=== PATIENT | female | born 2000 | race Caucasian/White ===

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

== ENCOUNTER 2019-12-19 23:11 | Emergency (ER) | payer BC ==
[2019-12-20] MEDS ORDERED: DUONEB 0.5-3 MG/3 ml Neb IH ONE ×2 (00:03→00:14)
--- NOTE | 2019-12-20 00:03 | ERPHSYRPT ---
- History of Present Illness Time Seen by Provider: 12/20/19 00:01 Source: patient, family Exam Limitations: no limitations Patient Subjective Stated Complaint: pt states she has been having a cough all day and has some exertional shortness of breath. Triage Nursing Assessment: pt alert and oriented, asnwers questions approp. pt ambulatoryw iht steady gait noted, respirations nonlabored with lungs cta. skin pink warm and dry. occasioanl dry cough noted. no resp distress noted. Physician History: pt reports onset of cough and short of breath just today and feeling like the flu/weak, no vomiting , but has had UTI being treated; Timing/Duration: today Cough Quality/Degree: productive cough Possible Cause: no prior episodes Modifying Factors: Improves With: exertion Associated Symptoms: chest pain/soreness, cough, shortness of breath, sore throat, wheezing Allergies/Adverse Reactions: No Known Drug Allergies Allergy (Verified 12/19/19 23:50) Home Medications: Armodafinil [Nuvigil] 150 mg PO DAILY 12/19/19 [History] Ciprofloxacin [Cipro 500 MG] 500 mg PO BID 12/19/19 [History] Hx Tetanus, Diphtheria Vaccination/Date Given: Yes Hx Influenza Vaccination/Date Given: Yes Hx Pneumococcal Vaccination/Date Given: No Immunizations Up to Date: Yes - Review of Systems Constitutional: Fever, No Chills Eyes: No Symptoms Ears, Nose, & Throat: No Symptoms Respiratory: Cough, Dyspnea, Dyspnea on Exertion (CHA) Cardiac: No Chest Pain, No Edema, No Syncope Abdominal/Gastrointestinal: No Abdominal Pain, No Nausea, No Vomiting, No Diarrhea Genitourinary Symptoms: No Dysuria Musculoskeletal: No Back Pain, No Neck Pain Skin: No Rash Neurological: No Dizziness, No Focal Weakness, No Sensory Changes Psychological: No Symptoms Endocrine: No Symptoms Hematologic/Lymphatic: No Symptoms Immunological/Allergic: No Symptoms All Other Systems: Reviewed and Negative - Past Medical History Pertinent Past Medical History: No Neurological History: No Pertinent History ENT History: No Pertinent History Cardiac History: No Pertinent History Respiratory History: No Pertinent History Endocrine Medical History: No Pertinent History Musculoskeletal History: No Pertinent History GI Medical History: Gallbladder Disease, Hemorrhoids History: No Pertinent History Psycho-Social History: Depression Female Reproductive Disorders: Menstrual Problems Other Medical History: has a little depression but meds help. gerd and hiatal hernia and barretts esophagus. possible narcolepsy - Past Surgical History Past Surgical History: Yes Neuro Surgical History: No Pertinent History Cardiac: No Pertinent History Respiratory: No Pertinent History Gastrointestinal: No Pertinent History Genitourinary: No Pertinent History Musculoskeletal: Orthopedic Surgery Female Surgical History: No Pertinent History Other Surgical History: carpal and cubital tunnel bilat - Social History Smoking Status: Never smoker Exposure to second hand smoke: No Drug Use: none Patient Lives Alone: No - Female History Hx Last Menstrual Period: 2 weeks Hx Now: No - Nursing Vital Signs Nursing Vital Signs: Initial Vital Signs Temperature 97.9 F 12/19/19 23:41 Pulse Rate 95 H 12/19/19 23:41 Respiratory Rate 18 12/19/19 23:41 Blood Pressure 122/76 12/19/19 23:41 O2 Sat by Pulse Oximetry 97 12/19/19 23:41 Pain Scale Pain Intensity 0 - Physical Exam General Appearance: no apparent distress, alert Eye Exam: PERRL/EOMI, eyes nml inspection Ears, Nose, Throat Exam: normal ENT inspection, TMs normal, pharynx normal, moist mucous membranes Neck Exam: normal inspection, non-tender, supple, full range of motion Respiratory Exam: normal breath sounds, lungs clear, No respiratory distress Cardiovascular Exam: regular rate/rhythm, normal heart sounds Gastrointestinal/Abdomen Exam: soft, No tenderness Back Exam: normal inspection, No CVA tenderness, No vertebral tenderness Extremity Exam: normal inspection, normal range of motion Neurologic Exam: alert, oriented x 3, cooperative, normal mood/affect, sensation nml, No motor deficits Skin Exam: normal color, warm, dry, No rash Lymphatic Exam: No adenopathy SpO2: 98 - Course Nursing assessment & vital signs reviewed: Yes EKG Interpreted by Me: Sinus Tach, NORMAL AXIS, NORMAL INTERVALS, NORMAL QRS, Non-specific ST Changes - Radiology Exams Chest X-ray Interpretation: Reviewed by me, Other (minor /minimal infiltrates) Ordered Tests: Active Orders 24 hr Category Date Time Status EKG-ER Only STAT Care 12/20/19 00:03 Active Pulse Oximetry (ED) STAT Care 12/20/19 00:03 Active CHEST 2 VIEWS (PA AND LAT) Stat Exams 12/20/19 00:05 Taken CBC W DIFF Stat Lab 12/20/19 00:33 Completed CMP Stat Lab 12/20/19 00:33 Completed D-DIMER QUANTITATIVE Stat Lab 12/20/19 00:33 Completed HCG QUALITATIVE,SERUM Stat Lab 12/20/19 00:33 Completed Lactic Acid Stat Lab 12/20/19 00:26 Completed TROPONIN Q3H Lab 12/20/19 00:33 Completed TROPONIN Q3H Lab 12/20/19 03:15 Ordered TROPONIN Q3H Lab 12/20/19 06:15 Ordered TROPONIN Q3H Lab 12/20/19 09:15 Ordered TROPONIN Q3H Lab 12/20/19 12:15 Ordered Respiratory Therapy Assessment DAILY RT 12/20/19 00:15 Completed Medication Summary Discontinued Medications Generic Name Dose Route Start Last Admin Trade Name Freq PRN Reason Stop Dose Admin Albuterol/Ipratropium 3 ml 12/20/19 00:03 12/20/19 00:16 Duoneb 0.5-3 Mg/3 Ml Neb IH 12/20/19 00:04 3 ml STAT ONE Administration Albuterol/Ipratropium Confirm 12/20/19 00:14 Duoneb 0.5-3 Mg/3 Ml Neb Administered 12/20/19 00:15 Dose 3 ml IH .STK-MED ONE Ceftriaxone Sodium 1,000 mg 12/20/19 01:09 12/20/19 01:17 Rocephin 1000 Mg Inj IM 12/20/19 01:10 1,000 mg STAT ONE Administration Ceftriaxone Sodium Confirm 12/20/19 01:10 Rocephin 1000 Mg Inj Administered 12/20/19 01:11 Dose 1,000 mg .ROUTE .STK-MED ONE Ceftriaxone Sodium/Dextrose 1 g in 50 mls @ 100 mls/hr 12/20/19 00:59 02:05 Rocephin 1 Gm-D5w 50 Ml Bag IV 12/20/19 01:28 Not Given STAT STA Lidocaine HCl Confirm 12/20/19 01:11 Xylocaine 1% Hcl 20 Ml Mdv Administered 12/20/19 01:12 Dose 1 ml .ROUTE .STK-MED ONE Lab/Rad Data: Laboratory Result Diagrams 12/20/19 00:33 12/20/19 00:33 Laboratory Results 12/20/19 12/20/19 12/20/19 Range/Units 00:33 00:33 00:33 WBC (4.0-10.5) K/mm3 RBC (4.1-5.4) M/mm3 Hgb (12.0-16.0) gm/dl Hct (35-47) % MCV (78-100) fl MCH (26-32) pg MCHC (32-36) g/dl RDW (11.5-14.0) % Plt Count (150-450) K/mm3 MPV (7.5-11.0) fl Gran % (36.0-66.0) % Eos # (Auto) (0-0.5) Absolute Lymphs (auto) (1.0-4.6) Absolute Monos (auto) (0.0-1.3) Lymphocytes % (24.0-44.0) % Monocytes % (0.0-12.0) % Eosinophils % (0.00-5.0) % Basophils % (0.0-0.4) % Absolute Granulocytes (1.4-6.9) Basophils # (0-0.4) D-Dimer 480 (215-500) ng/mL Sodium (137-145) mmol/L Potassium (3.5-5.1) mmol/L Chloride (98-107) mmol/L Carbon Dioxide (22-30) mmol/L Anion Gap (5-15) MEQ/L BUN (7-17) mg/dL Creatinine (0.52-1.04) mg/dL Estimated GFR ML/MIN Glucose (74-106) mg/dL Lactic Acid (0.4-2.0) Calcium (8.4-10.2) mg/dL Total Bilirubin (0.2-1.3) mg/dL AST (14-36) U/L ALT (0-35) U/L Alkaline Phosphatase (38-126) U/L Troponin I < 0.012 (0.000-0.034) ng/mL Serum Total Protein (6.3-8.2) g/dL Albumin (3.5-5.0) g/dL Serum , Qual (Negative) Influenza Type A Ag NEGATIVE (NEGATIVE) Influenza Type B Ag NEGATIVE (NEGATIVE) RSV (PCR) NEGATIVE (Negative) Group A Strep Antibody NOT DETECTED (NEGATIVE) 12/20/19 12/20/19 12/20/19 Range/Units 00:33 00:33 00:33 WBC 13.9 H (4.0-10.5) K/mm3 RBC 4.33 (4.1-5.4) M/mm3 Hgb 12.8 (12.0-16.0) gm/dl Hct 39.1 (35-47) % MCV 90.3 (78-100) fl MCH 29.6 (26-32) pg MCHC 32.7 (32-36) g/dl RDW 11.9 (11.5-14.0) % Plt Count 245 (150-450) K/mm3 MPV 9.9 (7.5-11.0) fl Gran % 66.9 H (36.0-66.0) % Eos # (Auto) 0.51 H (0-0.5) Absolute Lymphs (auto) 2.99 (1.0-4.6) Absolute Monos (auto) 1.05 (0.0-1.3) Lymphocytes % 21.5 L (24.0-44.0) % Monocytes % 7.5 (0.0-12.0) % Eosinophils % 3.7 (0.00-5.0) % Basophils % 0.4 (0.0-0.4) % Absolute Granulocytes 9.32 H (1.4-6.9) Basophils # 0.05 (0-0.4) D-Dimer (215-500) ng/mL Sodium 140 (137-145) mmol/L Potassium 3.6 (3.5-5.1) mmol/L Chloride 106 (98-107) mmol/L Carbon Dioxide 26 (22-30) mmol/L Anion Gap 12.0 (5-15) MEQ/L BUN 22 H (7-17) mg/dL Creatinine 0.70 (0.52-1.04) mg/dL Estimated GFR > 60.0 ML/MIN Glucose 97 (74-106) mg/dL Lactic Acid (0.4-2.0) Calcium 9.4 (8.4-10.2) mg/dL Total Bilirubin 0.70 (0.2-1.3) mg/dL AST 24 (14-36) U/L ALT 18 (0-35) U/L Alkaline Phosphatase 84 (38-126) U/L Troponin I (0.000-0.034) ng/mL Serum Total Protein 7.6 (6.3-8.2) g/dL Albumin 4.4 (3.5-5.0) g/dL Serum , Qual NEGATIVE (Negative) Influenza Type A Ag (NEGATIVE) Influenza Type B Ag (NEGATIVE) RSV (PCR) (Negative) Group A Strep Antibody (NEGATIVE) 12/20/19 Range/Units 00:26 WBC (4.0-10.5) K/mm3 RBC (4.1-5.4) M/mm3 Hgb (12.0-16.0) gm/dl Hct (35-47) % MCV (78-100) fl MCH (26-32) pg MCHC (32-36) g/dl RDW (11.5-14.0) % Plt Count (150-450) K/mm3 MPV (7.5-11.0) fl Gran % (36.0-66.0) % Eos # (Auto) (0-0.5) Absolute Lymphs (auto) (1.0-4.6) Absolute Monos (auto) (0.0-1.3) Lymphocytes % (24.0-44.0) % Monocytes % (0.0-12.0) % Eosinophils % (0.00-5.0) % Basophils % (0.0-0.4) % Absolute Granulocytes (1.4-6.9) Basophils # (0-0.4) D-Dimer (215-500) ng/mL Sodium (137-145) mmol/L Potassium (3.5-5.1) mmol/L Chloride (98-107) mmol/L Carbon Dioxide (22-30) mmol/L Anion Gap (5-15) MEQ/L BUN (7-17) mg/dL Creatinine (0.52-1.04) mg/dL Estimated GFR ML/MIN Glucose (74-106) mg/dL Lactic Acid 1.4 (0.4-2.0) Calcium (8.4-10.2) mg/dL Total Bilirubin (0.2-1.3) mg/dL AST (14-36) U/L ALT (0-35) U/L Alkaline Phosphatase (38-126) U/L Troponin I (0.000-0.034) ng/mL Serum Total Protein (6.3-8.2) g/dL Albumin (3.5-5.0) g/dL Serum , Qual (Negative) Influenza Type A Ag (NEGATIVE) Influenza Type B Ag (NEGATIVE) RSV (PCR) (Negative) Group A Strep Antibody (NEGATIVE) - Progress Progress: improved, re-examined Air Movement: good Progress Note: 12/20/19 01:14 cardiac score is 3 for EKG, CP, and risk factors and is low risk with neg trop ; Blood Culture(s) Obtained: No Antibiotics given: Yes Counseled pt/family regarding: lab results, diagnosis, need for follow-up, rad results - Departure Departure Disposition: Home Clinical Impression: Walking pneumonia Condition: Good Critical Care Time: No Referrals: BOB BONILLA [Primary Care Provider] - Instructions: Pneumonia, Adult (DC), Community-Acquired Pneumonia in Adults Additional Instructions: we are treating you for early /walking pneumonia. followup with your as a recheck adn return meantime if not improving, vomiting, short of breath or other concerns. Prescriptions: Azithromycin [Zithromax] 250 mg PO DAILY #5 tablet
[2019-12-20 00:35] LABS: Absolute Neutrophil Ct (ANC) 9.32 (1.4-6.9); BASOPHIL % 0.4 % (0.0-0.4); Basophil (Absolute #) 0.05 (0-0.4); Eosinophil % 3.7 % (0.00-5.0); Eosinophil (Absolute #) 0.51 (0-0.5); Hematocrit 39.1 % (35-47); Hemoglobin 12.8 gm/dl (12.0-16.0); Lymphocyte (Absolute #) 2.99 (1.0-4.6); Lymphocytes % 21.5 % (24.0-44.0); Mean Cell Volume 90.3 fl (78-100); Mean Corpuscular Hemoglobin 29.6 pg (26-32); Mean Corpuscular Hgb Concent. 32.7 g/dl (32-36); Mean Platelet Volume 9.9 fl (7.5-11.0); Monocyte (Absolute #) 1.05 (0.0-1.3); Monocytes % 7.5 % (0.0-12.0); Neutrophil % 66.9 % (36.0-66.0); Platelet Count 245 K/mm3 (150-450); Red Blood Count 4.33 M/mm3 (4.1-5.4); Red Cell Distribution Width 11.9 % (11.5-14.0); White Blood Count 13.9 K/mm3 (4.0-10.5)
[2019-12-20 00:54] LABS: ALBUMIN 4.4 g/dL (3.5-5.0); ALKALINE PHOSPHATASE 84 U/L (38-126); BLOOD UREA NITROGEN 22 mg/dL (7-17); CHLORIDE 106 mmol/L (98-107); Calcium 9.4 mg/dL (8.4-10.2); Carbon Dioxide 26 mmol/L (22-30); Glucose 97 mg/dL (74-106); Potassium 3.6 mmol/L (3.5-5.1); SGOT/AST 24 U/L (14-36); SGPT/ALT 18 U/L (0-35); SODIUM 140 mmol/L (137-145); Total Protein 7.6 g/dL (6.3-8.2)
[2019-12-20] MEDS ORDERED: ROCEPHIN 1 Gm-D5w 50 ml Bag** 1 G/50 ML IVPB IV STA (00:59)
[2019-12-20] MEDS ORDERED: Rocephin 1000 MG INJ IM ONE (01:09)
[2019-12-20] MEDS ORDERED: Rocephin 1000 MG INJ ONE (01:10)
[2019-12-20 01:11] LABS: INFLUENZA A NEGATIVE (NEGATIVE); INFLUENZA B NEGATIVE (NEGATIVE); RESPIRATORY SYNCTIAL VIRUS NEGATIVE (Negative)
[2019-12-20] MEDS ORDERED: XYLOCAINE 1% HCL 20 ML MDV ONE (01:11)
[2019-12-20 01:54] VITALS: O2SAT 98
[2019-12-20 01:55] LABS: Group A Strep NOT DETECTED (NEGATIVE)
[2019-12-20 02:39] VITALS: BP 118/73; PULSE 72
--- NOTE | 2019-12-20 08:27 | XRAY ---
Indication: Cough and short of breath. Comparison: May 29, 2017. PA/lateral chest again demonstrates normal heart, lungs, and bony thorax.
== END 2019-12-20 02:43 | disposition home or self-care (01) ==
LOC: ED 23:11
DX: J18.8 Other pneumonia, unspecified organism (principal); R07.89 Other chest pain; R05 Cough; J02.9 Acute pharyngitis, unspecified; Z79.899 Other long term (current) drug therapy
CPT/HCPCS: 36415; 71046; 80053; 81025; 83605; 84484; 85025; 85379; 87631; 87651; 93005; 94640; 94760; 96372; 99284; J0696; A9270-GY

== ENCOUNTER 2020-05-24 09:58 | Emergency (ER) | payer BC, OTHER ==
[2020-05-24] MEDS ORDERED: SILVADENE 50 GM TP ONE ×2 (10:16→10:26)
[2020-05-24] MEDS ORDERED: TYLENOL EXTRA STRENGTH 500 MG PO STA (10:19)
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
[2020-05-24] MEDS ORDERED: TYLENOL EXTRA STRENGTH 500 MG ONE (10:26)
[2020-05-24 10:37] VITALS: BP 109/64; PULSE 88; O2SAT 98
== END 2020-05-24 10:36 | disposition home or self-care (01) ==
LOC: ED 09:58
DX: T24.011A Burn of unspecified degree of right thigh, initial encounter (principal); X19.XXXA Contact with other heat and hot substances, initial encounter; Y93.9 Activity, unspecified; Y92.9 Unspecified place or not applicable
CPT/HCPCS: 99283; A9270-GY

== ENCOUNTER 2020-05-26 05:20 | Emergency (ER) | payer BC, OTHER ==
[2020-05-26] MEDS ORDERED: BABY ASPIRIN 81 MG CHEW PO ONE (05:38)
--- NOTE | 2020-05-26 05:38 | ERPHSYRPT ---
- History of Present Illness Time Seen by Provider: 05/26/20 05:37 Historian: patient Exam Limitations: no limitations Patient Subjective Stated Complaint: pt c/o chest pain Triage Nursing Assessment: pt c/o chest pain, radiates to low mid back. This began around 1600 yesterday and thought she was just having period cramps but the pain got worse. Physician History: Is a 19-year-old white female who has significant anxiety issues and presents with chest pain that radiates into her back. She was not doing any exertion. Patient states that she tried to slowly deep breathe and her substernal central sharp chest pain persisted. Patient has chronic anginal symptoms. Patient does not take any medications for her anxiety per her report. Patient has not had a cough, patient denies fever. Patient does not have any abdominal pain. He said no nausea vomiting or diarrhea. Timing/Duration: yesterday Activities at Onset: none Quality: sharpness, stabbing Location: substernal, central Chest Pain Radiation: back (Lower) Severity of Pain-Max: mild Severity of Pain-Current: mild Associated Symptoms: denies symptoms Nitro Today/Relief: no nitro taken today Aspirin Treatment Today: no aspirin today Allergies/Adverse Reactions: No Known Drug Allergies Allergy (Verified 05/26/20 05:28) Home Medications: Albuterol Sulfate [Proair Respiclick] 2 puffs IH Q4H PRN PRN 05/26/20 [History] Budesonide/Formoterol Fumarate [Budesonide-Formoterol 160-4.5] 2 puffs IH BID 05/26/20 [History] Famotidine 20 mg [Pepcid 20 MG] 20 mg PO BID 05/26/20 [History] Valacyclovir HCl [Valacyclovir] 500 mg PO DAILY 05/26/20 [History] Hx Tetanus, Diphtheria Vaccination/Date Given: Yes Hx Influenza Vaccination/Date Given: Yes Hx Pneumococcal Vaccination/Date Given: No Immunizations Up to Date: Yes Travel Risk - International Travel Have you traveled outside of the country in past 3 weeks: No - Coronavirus Screening Are you exhibiting any of the following symptoms?: No Symptoms: Shortness of Breath, Vomiting/Diarrhea, Headaches/Body Aches/Fatigue Close contact with a COVID-19 positive Pt in past 14-21 Days: No - Review of Systems Constitutional: No Symptoms Eyes: No Symptoms Ears, Nose, & Throat: No Symptoms Respiratory: No Symptoms Cardiac: Chest Pain Abdominal/Gastrointestinal: No Symptoms Genitourinary Symptoms: No Symptoms Musculoskeletal: No Symptoms Skin: No Symptoms Neurological: No Symptoms Psychological: No Symptoms Endocrine: No Symptoms Hematologic/Lymphatic: No Symptoms Immunological/Allergic: No Symptoms All Other Systems: Reviewed and Negative - Past Medical History Pertinent Past Medical History: Yes Neurological History: No Pertinent History ENT History: No Pertinent History Cardiac History: Angina Respiratory History: No Pertinent History Endocrine Medical History: No Pertinent History Musculoskeletal History: No Pertinent History GI Medical History: Gallbladder Disease, Hemorrhoids History: No Pertinent History Psycho-Social History: Depression Female Reproductive Disorders: Menstrual Problems Other Medical History: has a little depression but meds help. gerd and hiatal hernia and barretts esophagus. possible narcolepsy - Past Surgical History Past Surgical History: Yes Neuro Surgical History: No Pertinent History Cardiac: No Pertinent History Respiratory: No Pertinent History Gastrointestinal: No Pertinent History Genitourinary: No Pertinent History Musculoskeletal: Orthopedic Surgery Female Surgical History: No Pertinent History Other Surgical History: carpal and cubital tunnel bilat, wisdom teeth - Social History Smoking Status: Current every day smoker How long have you smoked: 1 Exposure to second hand smoke: No Drug Use: marijuana Patient Lives Alone: No - Female History Hx Last Menstrual Period: 1 month ago Hx Now: No - Nursing Vital Signs Nursing Vital Signs: Initial Vital Signs Temperature 98.3 F 05/26/20 05:20 Pulse Rate 81 05/26/20 05:20 Respiratory Rate 18 05/26/20 05:20 Blood Pressure 123/84 05/26/20 05:20 O2 Sat by Pulse Oximetry 98 05/26/20 05:20 Pain Scale Pain Intensity 7 - Physical Exam General Appearance: no apparent distress, alert, anxiety Eye Exam: PERRL/EOMI, eyes nml inspection Ears, Nose, Throat Exam: normal ENT inspection, moist mucous membranes Neck Exam: normal inspection, non-tender, supple, full range of motion Respiratory Exam: normal breath sounds, chest tenderness, lungs clear, respiratory distress, airway intact Cardiovascular Exam: regular rate/rhythm, normal heart sounds, normal peripheral pulses Gastrointestinal/Abdomen Exam: soft, normal bowel sounds, No tenderness Pelvic Exam: not done Rectal Exam: not done Back Exam: normal inspection, normal range of motion, No CVA tenderness, No vertebral tenderness Extremity Exam: normal inspection, normal range of motion, pelvis stable Neurologic Exam: alert, oriented x 3, cooperative, certified hand therapist II-XII nml as tested, normal mood/affect, nml cerebellar function, nml station & gait, sensation nml Skin Exam: normal color, warm, dry Lymphatic Exam: No adenopathy SpO2 Interpretation: normal SpO2: 98 O2 Delivery: Room Air - Course Nursing assessment & vital signs reviewed: Yes EKG Interpreted by Me: RATE (80), Sinus Rhythm, NORMAL AXIS, NORMAL INTERVALS, NORMAL QRS, Other (Comparison EKG performed on 12/29/2019 shows sinus tachycardia. Today's EKG shows resolution of this tachycardia.) Ordered Tests: Active Orders 24 hr Category Date Time Status Assembler Wet Wash STAT Care 05/26/20 05:39 Active EKG-ER Only STAT Care 05/26/20 05:38 Active IV Insertion STAT Care 05/26/20 05:38 Active Pulse Oximetry (ED) STAT Care 05/26/20 05:39 Active CBC W DIFF Stat Lab 05/26/20 05:35 Completed CMP Stat Lab 05/26/20 05:38 Ordered D-DIMER QUANTITATIVE Stat Lab 05/26/20 05:35 Completed PROTIME WITH INR Stat Lab 05/26/20 05:35 Completed TROPONIN Q3H Lab 05/26/20 08:45 Ordered TROPONIN Q3H Lab 05/26/20 11:45 Ordered TROPONIN Q3H Lab 05/26/20 14:45 Ordered TROPONIN Q3H Lab 05/26/20 17:45 Ordered Medication Summary Discontinued Medications Generic Name Dose Route Start Last Admin Trade Name Freq PRN Reason Stop Dose Admin Aspirin 324 mg 05/26/20 05:38 05/26/20 05:41 Baby Aspirin 81 Mg Chew PO 05/26/20 05:39 324 mg STAT ONE Administration Potassium Chloride 10 meq 05/26/20 06:50 05/26/20 06:56 Klor Con 10 Meq PO 05/26/20 06:51 10 meq STAT ONE Administration Lab/Rad Data: Laboratory Result Diagrams 05/26/20 05:35 05/26/20 05:35 Laboratory Results 05/26/20 05/26/20 05/26/20 Range/Units 05:35 05:35 05:35 WBC 11.4 H (4.0-10.5) K/mm3 RBC 4.46 (4.1-5.4) M/mm3 Hgb 13.4 (12.0-16.0) gm/dl Hct 40.6 (35-47) % MCV 91.0 (78-100) fl MCH 30.0 (26-32) pg MCHC 33.0 (32-36) g/dl RDW 12.1 (11.5-14.0) % Plt Count 261 (150-450) K/mm3 MPV 10.1 (7.5-11.0) fl Gran % 65.1 (36.0-66.0) % Eos # (Auto) 0.23 (0-0.5) Absolute Lymphs (auto) 2.54 (1.0-4.6) Absolute Monos (auto) 1.16 (0.0-1.3) Lymphocytes % 22.3 L (24.0-44.0) % Monocytes % 10.2 (0.0-12.0) % Eosinophils % 2.0 (0.00-5.0) % Basophils % 0.4 (0.0-0.4) % Absolute Granulocytes 7.41 H (1.4-6.9) Basophils # 0.04 (0-0.4) PT 14.0 H (9.95-12.35) SECONDS INR 1.24 (0.8-3.0) D-Dimer 249 (215-500) ng/mL Sodium Direct 142 (138-146) mmol/L Potassium 3.2 L (3.5-4.9) mmol/L Chloride 108 (98-109) mmol/L Carbon Dioxide 21 L (24-29) mmol/L Venous BUN 10 (8-26) mg/dL Creatinine 0.7 (0.6-1.3) mg/dL Glucose 79 (70-105) mg/dL Ionized Calcium 1.25 (1.12-1.32) mmol/L - Progress Progress: improved, re-examined Air Movement: good Blood Culture(s) Obtained: No Antibiotics given: No Counseled pt/family regarding: lab results, diagnosis, need for follow-up - Departure Departure Disposition: Home Clinical Impression: Recurrent chest pain, Hypokalemia, Anxiety Condition: Stable Critical Care Time: No Referrals: BOB BONILLA [Primary Care Provider] - Additional Instructions: Drink plenty of fluids. Eat bananas, green leafy vegetables and variety of nuts to help increase potassium in your diet. Follow-up with your primary care physician for further management
[2020-05-26 06:06] LABS: Absolute Neutrophil Ct (ANC) 7.41 (1.4-6.9); BASOPHIL % 0.4 % (0.0-0.4); Basophil (Absolute #) 0.04 (0-0.4); Eosinophil (Absolute #) 0.23 (0-0.5); Hematocrit 40.6 % (35-47); Hemoglobin 13.4 gm/dl (12.0-16.0); Lymphocyte (Absolute #) 2.54 (1.0-4.6); Lymphocytes % 22.3 % (24.0-44.0); Mean Platelet Volume 10.1 fl (7.5-11.0); Monocyte (Absolute #) 1.16 (0.0-1.3); Monocytes % 10.2 % (0.0-12.0); Neutrophil % 65.1 % (36.0-66.0); Platelet Count 261 K/mm3 (150-450); Red Blood Count 4.46 M/mm3 (4.1-5.4); Red Cell Distribution Width 12.1 % (11.5-14.0); White Blood Count 11.4 K/mm3 (4.0-10.5)
[2020-05-26 06:16] LABS: INR 1.24 (0.8-3.0)
[2020-05-26 06:36] LABS: ISTAT CREA 0.7 mg/dL (0.6-1.3)
[2020-05-26] MEDS ORDERED: Klor Con 10 MEQ PO ONE ×2 (06:50→06:55)
[2020-05-26 07:17] VITALS: BP 134/85; PULSE 94; O2SAT 97
[2020-05-26 07:52] LABS: ALBUMIN 4.2 g/dL (3.5-5.0); ALKALINE PHOSPHATASE 65 U/L (38-126); ANION GAP 13.9 MEQ/L (5-15); SGOT/AST 19 U/L (14-36); SGPT/ALT 11 U/L (0-35); Total Protein 6.8 g/dL (6.3-8.2)
[2020-05-26 08:30] LABS: Calcium 9.7 mg/dL (8.4-10.2)
== END 2020-05-26 07:18 | disposition home or self-care (01) ==
LOC: ED 05:20
DX: R07.9 Chest pain, unspecified (principal); E87.6 Hypokalemia; F41.9 Anxiety disorder, unspecified
CPT/HCPCS: 36000; 36415; 80047; 80053; 84484; 85025; 85379; 85610; 93005; 93041; 94760; 99284; A9270-GY

== ENCOUNTER 2021-02-23 09:23 | Emergency (ER) | payer BC, OTHER ==
--- NOTE | 2021-02-23 09:35 | ERPHSYRPT ---
- History of Present Illness Time Seen by Provider: 02/23/21 09:35 Source: patient Exam Limitations: no limitations Physician History: This is a 20-year-old white female has a history of asthma. She does not smoke cigarettes but occasionally does smoke marijuana. Patient was well until Saturday when she noticed a cough which is associated with some shortness of breath. The cough and shortness of breath worsened over a couple days. She had a fever of 100 F. She was seen at the respiratory clinic yesterday and had a COVID-19 test obtained. The results are unknown at this point in time. Patient has had some wheezing and chest pain with coughing. She also states that she had diarrhea yesterday. She has no known exposures to any individual who tested positive for COVID-19 virus. Timing/Duration: day(s) (2) Activities at Onset: none Severity of Dyspnea-Max: mild Severity of Dyspnea-Current: mild Possible Cause: no prior episodes Modifying Factors: Improves With: activity, coughing, exertion Associated Symptoms: intermittent, cough, wheezing, painful breathing, No calf pain Allergies/Adverse Reactions: No Known Drug Allergies Allergy (Verified 02/23/21 09:37) Home Medications: Albuterol Sulfate [Proair Respiclick] 2 puffs IH Q4H PRN PRN 05/26/20 [History] Budesonide/Formoterol Fumarate [Budesonide-Formoterol 160-4.5] 2 puffs IH BID 05/26/20 [History] Hx Tetanus, Diphtheria Vaccination/Date Given: Yes Hx Influenza Vaccination/Date Given: Yes Hx Pneumococcal Vaccination/Date Given: No Travel Risk - International Travel Have you traveled outside of the country in past 3 weeks: No - Coronavirus Screening Are you exhibiting any of the following symptoms?: Yes Symptoms: Cough: New Onset, Shortness of Breath, Vomiting/Diarrhea Close contact with a COVID-19 positive Pt in past 14-21 Days: No - Vaccine Status Have you recieved a Covid-19 vaccination: No - Review of Systems Constitutional: Fever Eyes: No Symptoms Ears, Nose, & Throat: No Symptoms Respiratory: Cough, Wheezing Cardiac: No Symptoms Abdominal/Gastrointestinal: No Symptoms Genitourinary Symptoms: No Symptoms Musculoskeletal: No Symptoms Skin: No Symptoms Neurological: No Symptoms Psychological: No Symptoms Endocrine: No Symptoms Hematologic/Lymphatic: No Symptoms Immunological/Allergic: No Symptoms All Other Systems: Reviewed and Negative - Past Medical History Pertinent Past Medical History: Yes Neurological History: No Pertinent History ENT History: No Pertinent History Cardiac History: Angina Respiratory History: No Pertinent History Endocrine Medical History: No Pertinent History Musculoskeletal History: No Pertinent History GI Medical History: Gallbladder Disease, Hemorrhoids History: No Pertinent History Psycho-Social History: Depression Female Reproductive Disorders: Menstrual Problems Other Medical History: has a little depression but meds help. gerd and hiatal hernia and barretts esophagus. possible narcolepsy - Past Surgical History Past Surgical History: Yes Neuro Surgical History: No Pertinent History Cardiac: No Pertinent History Respiratory: No Pertinent History Gastrointestinal: No Pertinent History Genitourinary: No Pertinent History Musculoskeletal: Orthopedic Surgery Female Surgical History: No Pertinent History Other Surgical History: carpal and cubital tunnel bilat, wisdom teeth - Social History Smoking Status: Current every day smoker How long have you smoked: 1 Exposure to second hand smoke: No Drug Use: marijuana Patient Lives Alone: No - Nursing Vital Signs Nursing Vital Signs: Initial Vital Signs Temperature 97.4 F 02/23/21 09:25 Pulse Rate 114 H 02/23/21 09:25 Respiratory Rate 18 02/23/21 09:25 Blood Pressure 107/75 02/23/21 09:25 O2 Sat by Pulse Oximetry 96 02/23/21 09:25 Pain Scale Pain Intensity 7 - Physical Exam General Appearance: alert, anxiety Eye Exam: PERRL/EOMI, eyes nml inspection Ears, Nose, Throat Exam: hearing grossly normal, normal ENT inspection, normal pharynx Neck Exam: normal inspection, non-tender, supple, full range of motion Respiratory Exam: airway intact, wheezing, No chest tenderness, No respiratory distress Cardiovascular/Chest Exam: tachycardia Abdominal/Gastrointestinal Exam: soft, normal bowel sounds, No tenderness Rectal Exam: not done Extremity Exam: non-tender, normal range of motion, normal inspection, normal capillary refill, no calf tenderness Neurologic Exam: alert, oriented x 3, cooperative, wax engraver II-XII nml as tested, normal mood/affect, nml cerebellar function, nml station & gait, sensation nml Skin Exam: normal color, warm, dry Lymphatic Exam: No adenopathy SpO2 Interpretation: normal O2 Delivery: Room Air Ordered Tests: Active Orders 24 hr Category Date Time Status Job Boss STAT Care 02/23/21 09:44 Active EKG-ER Only STAT Care 02/23/21 09:42 Active IV Insertion STAT Care 02/23/21 09:42 Active CHEST 1 VIEW (PORTABLE) Stat Exams 02/23/21 09:43 Completed BLOOD CULTURE Stat Lab 02/23/21 10:13 Received CBC W DIFF Stat Lab 02/23/21 09:42 Completed CMP Stat Lab 02/23/21 09:30 Completed D-DIMER QUANTITATIVE Stat Lab 02/23/21 09:30 Completed INFLUENZA A+B VIRI Stat Lab 02/23/21 10:17 Completed Lactic Acid Stat Lab 02/23/21 09:42 Completed NT PRO BNP Stat Lab 02/23/21 09:30 Completed TROPONIN Q3H Lab 02/23/21 09:30 Completed TROPONIN Q3H Lab 02/23/21 12:45 Ordered TROPONIN Q3H Lab 02/23/21 15:45 Ordered TROPONIN Q3H Lab 02/23/21 18:45 Ordered TROPONIN Q3H Lab 02/23/21 21:45 Ordered Respiratory Therapy Assessment DAILY RT 02/23/21 10:05 Completed Medication Summary Generic Name Dose Route Start Last Admin Trade Name Freq PRN Reason Stop Dose Admin Sodium Chloride 1,000 mls @ 100 mls/hr 02/23/21 09:45 02/23/21 10:09 Sodium Chloride 0.9% 1000 Ml IV 03/25/21 09:44 100 mls/hr .Q10H MERON Administration Discontinued Medications Generic Name Dose Route Start Last Admin Trade Name Freq PRN Reason Stop Dose Admin Hydrocodone Bitart/Acetaminophen 10 ml 02/23/21 09:45 02/23/21 10:09 Hydrocodone-Acetamin 2.5-108/5 Ml Solution PO 02/23/21 09:46 10 ml STAT STA Administration Hydrocodone Bitart/Acetaminophen Confirm 02/23/21 10:08 Hydrocodone-Acetamin 2.5-108/5 Ml Solution Administered 02/23/21 10:09 Dose 10 ml .ROUTE .STK-MED ONE Albuterol/Ipratropium Confirm 02/23/21 09:52 Duoneb 0.5-3 Mg/3 Ml Neb Administered 02/23/21 09:53 Dose 3 ml IH .STK-MED ONE Albuterol/Ipratropium 3 ml 02/23/21 10:06 02/23/21 10:07 Duoneb 0.5-3 Mg/3 Ml Neb IH 02/23/21 10:07 3 ml STAT ONE Administration Methylprednisolone Sodium Succinate 125 mg 02/23/21 09:42 02/23/21 10:09 Solu-Medrol 125 Mg IV 02/23/21 09:43 125 mg STAT ONE Administration Methylprednisolone Sodium Succinate Confirm 02/23/21 10:08 Solu-Medrol 125 Mg Administered 02/23/21 10:09 Dose 125 mg .ROUTE .STK-MED ONE Lab/Rad Data: Laboratory Result Diagrams 02/23/21 09:42 02/23/21 09:30 Laboratory Results 02/23/21 02/23/21 02/23/21 Range/Units 10:17 09:42 09:42 WBC 18.1 H (4.0-10.5) K/mm3 RBC 5.05 (4.1-5.4) M/mm3 Hgb 14.8 (12.0-16.0) gm/dl Hct 45.9 (35-47) % MCV 90.9 (78-100) fl MCH 29.3 (26-32) pg MCHC 32.2 (32-36) g/dl RDW 12.7 (11.5-14.0) % Plt Count 270 (150-450) K/mm3 MPV 10.6 (7.5-11.0) fl Gran % 80.0 H (36.0-66.0) % Eos # (Auto) 0.62 H (0-0.5) Absolute Lymphs (auto) 1.25 (1.0-4.6) Absolute Monos (auto) 1.72 H (0.0-1.3) Lymphocytes % 6.9 L (24.0-44.0) % Monocytes % 9.5 (0.0-12.0) % Eosinophils % 3.4 (0.00-5.0) % Basophils % 0.2 (0.0-0.4) % Absolute Granulocytes 14.48 H (1.4-6.9) Basophils # 0.04 (0-0.4) D-Dimer (215-500) ng/mL Sodium (137-145) mmol/L Potassium (3.5-5.1) mmol/L Chloride (98-107) mmol/L Carbon Dioxide (22-30) mmol/L Anion Gap (5-15) MEQ/L BUN (7-17) mg/dL Creatinine (0.52-1.04) mg/dL Estimated GFR ML/MIN Glucose (74-106) mg/dL Lactic Acid 1.3 (0.4-2.0) Calcium (8.4-10.2) mg/dL Total Bilirubin (0.2-1.3) mg/dL AST (14-36) U/L ALT (0-35) U/L Alkaline Phosphatase (38-126) U/L Troponin I (0.000-0.034) ng/mL NT-Pro-B Natriuret Pep (0-450) pg/mL Serum Total Protein (6.3-8.2) g/dL Albumin (3.5-5.0) g/dL Influenza Type A Ag NEGATIVE (NEGATIVE) Influenza Type B Ag NEGATIVE (NEGATIVE) 02/23/21 02/23/21 02/23/21 Range/Units 09:30 09:30 09:30 WBC (4.0-10.5) K/mm3 RBC (4.1-5.4) M/mm3 Hgb (12.0-16.0) gm/dl Hct (35-47) % MCV (78-100) fl MCH (26-32) pg MCHC (32-36) g/dl RDW (11.5-14.0) % Plt Count (150-450) K/mm3 MPV (7.5-11.0) fl Gran % (36.0-66.0) % Eos # (Auto) (0-0.5) Absolute Lymphs (auto) (1.0-4.6) Absolute Monos (auto) (0.0-1.3) Lymphocytes % (24.0-44.0) % Monocytes % (0.0-12.0) % Eosinophils % (0.00-5.0) % Basophils % (0.0-0.4) % Absolute Granulocytes (1.4-6.9) Basophils # (0-0.4) D-Dimer 333 (215-500) ng/mL Sodium 141 (137-145) mmol/L Potassium 3.6 (3.5-5.1) mmol/L Chloride 106 (98-107) mmol/L Carbon Dioxide 23 (22-30) mmol/L Anion Gap 15.8 H (5-15) MEQ/L BUN 11 (7-17) mg/dL Creatinine 0.60 (0.52-1.04) mg/dL Estimated GFR > 60.0 ML/MIN Glucose 79 (74-106) mg/dL Lactic Acid (0.4-2.0) Calcium 10.2 (8.4-10.2) mg/dL Total Bilirubin 3.00 H (0.2-1.3) mg/dL AST 23 (14-36) U/L ALT 14 (0-35) U/L Alkaline Phosphatase 70 (38-126) U/L Troponin I < 0.012 (0.000-0.034) ng/mL NT-Pro-B Natriuret Pep 45.3 (0-450) pg/mL Serum Total Protein 8.7 H (6.3-8.2) g/dL Albumin 5.0 (3.5-5.0) g/dL Influenza Type A Ag (NEGATIVE) Influenza Type B Ag (NEGATIVE) - Progress Progress: improved, re-examined Air Movement: good Progress Note: 02/23/21 10:22 Chest x-ray shows no acute cardiopulmonary process 02/23/21 11:11 Patient states that she is feeling much better after IV fluids, hydrocodone cough medicine and steroids. Medical decision making: This patient is feeling better after treatment with intravenous fluids, hydrocodone cough medicine and steroids. Patient does have an 18,000 white count. We will treat her with Rocephin 1 g intravenous here. Her oxygen saturation, on room air, is 97 to 98%. She is mildly tachycardic. Her troponin and D-dimer are both normal. Her chest x-ray is read by radiologist and report states that there is no acute cardiopulmonary process. We will discharge the patient to home with instructions to continue to quarantine herself until she gets her COVID-19 test result. We will send her home with a prescription for more hydrocodone cough syrup, steroids and a Z-Don. Blood Culture(s) Obtained: Yes Counseled pt/family regarding: lab results, diagnosis, need for follow-up, rad results - Departure Departure Disposition: Home Clinical Impression: Upper respiratory infection Condition: Stable Critical Care Time: No Referrals: BOB KENYON [Primary Care Provider] - Additional Instructions: Drink plenty of fluids. Avoid any exposure to any type of smoke. Take your medications as prescribed. Return to the emergency department if symptoms worsen. Follow-up with your primary care physician for persistent symptoms. Continue to quarantine yourself until you receive the results of your COVID-19 test. Prescriptions: Hydrocodone/Acetaminophen [Hydrocodone-Acetamn 7.5-325/15] 10 ml PO Q8H PRN PRN #120 ml MDD 30ml PRN Reason: Cough Prednisone 10 mg [Deltasone 10 mg] 10 mg PO TID #12 tablet Azithromycin 250 mg [Zithromax 250 MG TABLET] 250 mg PO ZPACK #6 tablet
[2021-02-23] MEDS ORDERED: solu-MEDROL 125 MG IV ONE (09:42)
[2021-02-23] MEDS ORDERED: HYDROCODONE-ACETAMIN 2.5-108/5 ML SOLUTION PO STA (09:45)
[2021-02-23] MEDS ORDERED: Sodium Chloride 0.9% 1000 ML 1,000 ML IV SCH (09:45)
[2021-02-23] MEDS ORDERED: DUONEB 0.5-3 MG/3 ml Neb IH ONE ×2 (09:52→10:06)
[2021-02-23] MEDS ORDERED: solu-MEDROL 125 MG ONE (10:08)
[2021-02-23] MEDS ORDERED: Sodium Chloride 0.9% 1000 ML 1,000 ML ONE (10:08)
[2021-02-23] MEDS ORDERED: HYDROCODONE-ACETAMIN 2.5-108/5 ML SOLUTION ONE (10:08)
--- NOTE | 2021-02-23 10:09 | XRAY ---
Indication: Cough, short of breath, diarrhea. Comparison: March 03, 2020. Portable chest again demonstrates normal heart, lungs, and bony thorax.
[2021-02-23 10:24] LABS: Absolute Neutrophil Ct (ANC) 14.48 (1.4-6.9); BASOPHIL % 0.2 % (0.0-0.4); Basophil (Absolute #) 0.04 (0-0.4); Eosinophil % 3.4 % (0.00-5.0); Eosinophil (Absolute #) 0.62 (0-0.5); Hematocrit 45.9 % (35-47); Hemoglobin 14.8 gm/dl (12.0-16.0); Lymphocyte (Absolute #) 1.25 (1.0-4.6); Lymphocytes % 6.9 % (24.0-44.0); Mean Cell Volume 90.9 fl (78-100); Mean Corpuscular Hemoglobin 29.3 pg (26-32); Mean Corpuscular Hgb Concent. 32.2 g/dl (32-36); Mean Platelet Volume 10.6 fl (7.5-11.0); Monocyte (Absolute #) 1.72 (0.0-1.3); Monocytes % 9.5 % (0.0-12.0); Platelet Count 270 K/mm3 (150-450); Red Blood Count 5.05 M/mm3 (4.1-5.4); Red Cell Distribution Width 12.7 % (11.5-14.0); White Blood Count 18.1 K/mm3 (4.0-10.5)
[2021-02-23 10:46] LABS: ALKALINE PHOSPHATASE 70 U/L (38-126); ANION GAP 15.8 MEQ/L (5-15); BLOOD UREA NITROGEN 11 mg/dL (7-17); CHLORIDE 106 mmol/L (98-107); Calcium 10.2 mg/dL (8.4-10.2); Carbon Dioxide 23 mmol/L (22-30); EST GLOMERULAR FILTRATION RATE > 60.0 ML/MIN; Glucose 79 mg/dL (74-106); NT PRO BNP 45.3 pg/mL (0-450); Potassium 3.6 mmol/L (3.5-5.1); SGOT/AST 23 U/L (14-36); SGPT/ALT 14 U/L (0-35); SODIUM 141 mmol/L (137-145); Total Protein 8.7 g/dL (6.3-8.2)
[2021-02-23 10:53] LABS: INFLUENZA A NEGATIVE (NEGATIVE); INFLUENZA B NEGATIVE (NEGATIVE)
[2021-02-23] MEDS ORDERED: ROCEPHIN 1 Gm-D5w 50 ml Bag** 1 G/50 ML IVPB IV STA (11:10)
[2021-02-23] MEDS ORDERED: ROCEPHIN 1 Gm-D5w 50 ml Bag** 1 G/50 ML IVPB IV ONE (11:15)
[2021-02-23 12:05] VITALS: BP 108/7; PULSE 107; O2SAT 94
[2021-02-23 14:34] LABS: Slide Review 1 YES
== END 2021-02-23 12:17 | disposition home or self-care (01) ==
LOC: ED 09:23
DX: J06.9 Acute upper respiratory infection, unspecified (principal); R05 Cough; R50.9 Fever, unspecified; Z79.899 Other long term (current) drug therapy
CPT/HCPCS: 36000; 36415; 71045; 80053; 83605; 83880; 84484; 85025; 85379; 87040; 87400; 93005; 93041; 94640; 96365; 96374; 99284; J0696; J2930; A9270-GY

== ENCOUNTER 2021-09-08 20:58 | Emergency (ER) | payer BC, OTHER ==
[2021-09-08 21:20] VITALS: BP 139/87; PULSE 90; O2SAT 96
--- NOTE | 2021-09-08 21:27 | ERPHSYRPT ---
- History of Present Illness Source: patient Exam Limitations: no limitations Patient Subjective Stated Complaint: Patient states she rolled her ankle on the Saturday before . She indicates that she has been off of her feet since then until she returned to work today and the pain just kept increasing the longer she was on her feet at work. Triage Nursing Assessment: Patient ambulated back to ED with steady gait. Alert and oriented and answering questions appropriately. LLE normal skin tone; no redness, bruising, increased warmth noted. Slight swelling noted to external ankle. Skin intact. CMS checks WNL to foot/toes. Pedal pulse present. Physician History: 20 yo wf states that she twisted her L ankle at work on 08/29/21 and missed work until today but found the pain intolerable. She denies other/previous injuries. Pt has also been on quarantine for mild CV19 and is 31 wks . Method of Injury: twisted Occurred: other (08/29/21) Quality: constant Severity of Pain-Max: moderate Severity of Pain-Current: mild Lower Extremities Pain: ankle: left Modifying Factors: Improves With: movement Associated Symptoms: snapping sensation, popping sensation Allergies/Adverse Reactions: No Known Drug Allergies Allergy (Verified 09/08/21 21:05) Home Medications: Pnv No.95/Ferrous Fum/Folic AC [ Vitamin Tablet] 1 tab PO DAILY 09/08/21 [History] Hx Tetanus, Diphtheria Vaccination/Date Given: Yes Hx Influenza Vaccination/Date Given: Yes Hx Pneumococcal Vaccination/Date Given: No Immunizations Up to Date: Yes Travel Risk - International Travel Have you traveled outside of the country in past 3 weeks: No - Coronavirus Screening Are you exhibiting any of the following symptoms?: No Close contact with a COVID-19 positive Pt in past 14-21 Days: No - Vaccine Status Have you recieved a Covid-19 vaccination: No - Review of Systems Constitutional: No Symptoms Eyes: No Symptoms Ears, Nose, & Throat: No Symptoms Respiratory: No Symptoms Cardiac: No Symptoms Abdominal/Gastrointestinal: No Symptoms Genitourinary Symptoms: No Symptoms, , No Vaginal Bleeding, No Vaginal Discharge Musculoskeletal: No Symptoms, Arthralgias Skin: No Symptoms Neurological: No Symptoms Psychological: No Symptoms Endocrine: No Symptoms Hematologic/Lymphatic: No Symptoms Immunological/Allergic: No Symptoms - Past Medical History Pertinent Past Medical History: Yes Neurological History: No Pertinent History ENT History: No Pertinent History Cardiac History: Angina Respiratory History: No Pertinent History Endocrine Medical History: No Pertinent History Musculoskeletal History: No Pertinent History GI Medical History: GERD, Gallbladder Disease, Hemorrhoids History: No Pertinent History Psycho-Social History: Depression Female Reproductive Disorders: Menstrual Problems Other Medical History: hiatal hernia and barretts esophagus. - Past Surgical History Past Surgical History: Yes Neuro Surgical History: No Pertinent History Cardiac: No Pertinent History Respiratory: No Pertinent History Gastrointestinal: No Pertinent History Genitourinary: No Pertinent History Musculoskeletal: Orthopedic Surgery Female Surgical History: No Pertinent History Other Surgical History: carpal and cubital tunnel bilat, wisdom teeth - Social History Smoking Status: Former smoker How long have you smoked: 1 Exposure to second hand smoke: No Drug Use: none Patient Lives Alone: No Significant Family History: no pertinent family hx - Female History Hx Now: No Gestational Age: 31 weeks - Nursing Vital Signs Nursing Vital Signs: Initial Vital Signs Temperature 98 F 09/08/21 21:08 Pulse Rate 90 09/08/21 21:08 Respiratory Rate 20 09/08/21 21:08 Blood Pressure 139/87 09/08/21 21:08 O2 Sat by Pulse Oximetry 96 09/08/21 21:08 Pain Scale Pain Intensity 5 WNL - Physical Exam General Appearance: no apparent distress Eyes, Ears, Nose, Throat Exam: normal ENT inspection Neck Exam: normal inspection Cardiovascular/Respiratory Exam: normal breath sounds, regular rate/rhythm, heart sounds normal Gastrointestinal/Abdominal Exam: non-tender, soft, No tenderness Back Exam: normal inspection Hips Exam: bilateral: non-tender, normal inspection, normal range of motion, no evidence of injury Legs Exam: bilateral leg: non-tender, normal inspection, normal range of motion, no evidence of injury Knees Exam: bilateral knee: non-tender, normal inspection, normal range of motion, no evidence of injury Ankle Exam: right ankle: non-tender, left ankle: bone tenderness (L ankle TTP lateral malleolus and anteriorly/Good pedal pulse, distal sensation, and capillary return/No ecchymosis/minimal edema at best) Foot Exam: bilateral foot: non-tender, normal inspection, normal range of motion, no evidence of injury Neuro/Tendon Exam: normal sensation, normal motor functions, normal tendon functions, responds to pain Mental Status Exam: alert, oriented x 3, cooperative Skin Exam: normal color, warm, dry SpO2 Interpretation: normal SpO2: 96 O2 Delivery: Room Air - Course Nursing assessment & vital signs reviewed: Yes - Radiology Exams Ankle X-ray Interpretation: Reviewed by me (Possible medial malleolus small avulsion fx/otherwise negative) Ordered Tests: Active Orders 24 hr Category Date Time Status Splint STAT Care 09/08/21 21:57 Completed ANKLE (3 VIEWS) Stat Exams 09/08/21 Taken - Progress Progress Note: 09/08/21 21:58 Air splint L ankle per nursing/NVI Pt refuses crutches 09/08/21 22:00 Pt refuses work excuse Counseled pt/family regarding: diagnosis, need for follow-up, rad results - Departure Departure Disposition: Home Clinical Impression: Left ankle sprain Condition: Stable Critical Care Time: No Referrals: BOB MALDONADO [Primary Care Provider] - Follow up/PCP as directed Instructions: Ankle Sprain (DC) Additional Instructions: Air Cast for 3-4 days Tylenol for pain Weight bearing as tolerated
== END 2021-09-08 22:13 | disposition home or self-care (01) ==
LOC: ED 20:58
DX: S93.402A Sprain of unspecified ligament of left ankle, initial encounter (principal); X50.1XXA Overexertion from prolonged static or awkward postures, initial encounter; Y99.0 Civilian activity done for income or pay; Z33.1 Pregnant state, incidental
CPT/HCPCS: 73610; 99283

== ENCOUNTER 2022-08-04 17:17 | Emergency (ER) | payer OTHER ==
--- NOTE | 2022-08-04 17:23 | ERPHSYRPT ---
- History of Present Illness Historian: patient Exam Limitations: no limitations Timing/Duration: today Activities at Onset: none Quality: aching Abdominal Pain Onset Location: generalized abdomen Pain Radiation: no radiation Severity of Pain-Max: mild (Moderate) Severity of Pain-Current: mild (To moderate) Modifying Factors: Improves With: vomiting Associated Symptoms: loss of appetite, nausea, vomiting, weakness Previous symptoms: same symptoms as today Hx Tetanus, Diphtheria Vaccination/Date Given: Yes Hx Influenza Vaccination/Date Given: Yes Hx Pneumococcal Vaccination/Date Given: No <RONNELL SIDHU - Last Filed: 08/04/22 17:45> <TAYE DAVIS - Last Filed: 08/04/22 21:01> - History of Present Illness Time Seen by Provider: 08/04/22 17:23 Physician History: This is a 21-year-old white female who presents to the emergency department with sudden onset of diffuse abdominal pain earlier this afternoon. Patient states she felt fine this morning and then had sudden onset abdominal pain with associated nausea vomiting. She had a similar episode 1 month ago. On 07/26/2022 patient had a slightly elevated total bilirubin of 1.8. On 08/02/2022 patient underwent a gallbladder ultrasound which was a negative gallbladder sonogram per report. Patient has not had a fever. She has no known exposures to individuals with similar symptoms or with flu diagnosis. Patient denies chest pain. She denies shortness of breath. Patient is breast-feeding. (RONNELL SIDHU) Allergies/Adverse Reactions: No Known Drug Allergies Allergy (Verified 08/04/22 17:26) Travel Risk - International Travel Have you traveled outside of the country in past 3 weeks: No - Coronavirus Screening Are you exhibiting any of the following symptoms?: No Close contact with a COVID-19 positive Pt in past 14-21 Days: No - Vaccine Status Have you recieved a Covid-19 vaccination: No <RONNELL SIDHU - Last Filed: 08/04/22 17:45> - Review of Systems Constitutional: Weakness Eyes: No Symptoms Ears, Nose, & Throat: No Symptoms Respiratory: No Symptoms Cardiac: No Symptoms Abdominal/Gastrointestinal: Abdominal Pain, Nausea, Vomiting, No Diarrhea, No Constipation Genitourinary Symptoms: No Symptoms Musculoskeletal: No Symptoms Skin: No Symptoms Neurological: No Symptoms Psychological: No Symptoms Endocrine: No Symptoms Hematologic/Lymphatic: Easy Bruising Immunological/Allergic: No Symptoms All Other Systems: Reviewed and Negative <RONNELL SIDHU - Last Filed: 08/04/22 17:45> - Past Medical History Pertinent Past Medical History: Yes Neurological History: No Pertinent History ENT History: No Pertinent History Cardiac History: Angina Respiratory History: No Pertinent History Endocrine Medical History: No Pertinent History Musculoskeletal History: No Pertinent History GI Medical History: GERD, Gallbladder Disease, Hemorrhoids History: No Pertinent History Psycho-Social History: Depression Female Reproductive Disorders: Menstrual Problems Other Medical History: hiatal hernia and barretts esophagus. - Past Surgical History Past Surgical History: Yes Neuro Surgical History: No Pertinent History Cardiac: No Pertinent History Respiratory: No Pertinent History Gastrointestinal: No Pertinent History Genitourinary: No Pertinent History Musculoskeletal: Orthopedic Surgery Female Surgical History: No Pertinent History Other Surgical History: carpal and cubital tunnel bilat, wisdom teeth - Social History Smoking Status: Former smoker How long have you smoked: 1 Exposure to second hand smoke: No Drug Use: none Patient Lives Alone: No Significant Family History: no pertinent family hx <RONNELL SIDHU - Last Filed: 08/04/22 17:45> - Physical Exam General Appearance: no apparent distress, alert, anxiety Eye Exam: PERRL/EOMI, eyes nml inspection Ears, Nose, Throat Exam: dry mucous membranes Neck Exam: normal inspection, non-tender, supple, full range of motion Respiratory Exam: normal breath sounds, lungs clear, airway intact, No chest tenderness, No respiratory distress Cardiovascular Exam: regular rate/rhythm, normal heart sounds, normal peripheral pulses Gastrointestinal/Abdomen Exam: soft, normal bowel sounds, tenderness (Mild diffuse), guarding (Mild diffuse with palpation), No rebound Pelvic Exam: not done Rectal Exam: not done Back Exam: normal inspection, normal range of motion, No CVA tenderness, No vertebral tenderness Extremity Exam: normal inspection Neurologic Exam: alert, oriented x 3, cooperative, solution design engineer II-XII nml as tested, normal mood/affect, nml cerebellar function, nml station & gait, sensation nml Skin Exam: normal color, warm, dry Lymphatic Exam: No adenopathy SpO2 Interpretation: normal O2 Delivery: Room Air <RONNELL SIDHU - Last Filed: 08/04/22 17:45> - Nursing Vital Signs Nursing Vital Signs: Initial Vital Signs Pulse Rate 64 08/04/22 18:15 Respiratory Rate 16 08/04/22 18:15 Blood Pressure 111/61 08/04/22 18:15 O2 Sat by Pulse Oximetry 98 08/04/22 18:15 Pain Scale Pain Intensity 4 - Course Nursing assessment & vital signs reviewed: Yes <RONNELL SIDHU - Last Filed: 08/04/22 17:45> - Course Nursing assessment & vital signs reviewed: Yes - CT Exams Abdomen/Pelvis CT Interpretation: Tele-radiologist Report <TAYE DAVIS - Last Filed: 08/04/22 21:01> Ordered Tests: Active Orders 24 hr Category Date Time Status IV Insertion STAT Care 08/04/22 17:40 Active POCT Glucose Check STAT Care 08/04/22 17:43 Active ABDOMEN AND PELVIS W CONTRAST [CT] Stat Exams 08/04/22 18:52 Taken AMYLASE Stat Lab 08/04/22 17:48 Completed CBC W DIFF Stat Lab 08/04/22 17:48 Completed CBC W DIFF Stat Lab 08/04/22 20:06 Completed CMP Stat Lab 08/04/22 17:48 Completed CMP Stat Lab 08/04/22 20:06 Completed HCG QUALITATIVE,SERUM Stat Lab 08/04/22 18:44 Completed LIPASE Stat Lab 08/04/22 17:48 Completed Lactic Acid Stat Lab 08/04/22 17:40 Completed Lactic Acid Stat Lab 08/04/22 19:52 Received Lactic Acid Stat Lab 08/04/22 20:50 Completed [place] Screen Stat Lab 08/04/22 17:50 Completed POCT GLUCOSE Stat Lab 08/04/22 17:32 Completed UA W/RFX CULTURE Stat Lab 08/04/22 Ordered Medication Summary Discontinued Medications Generic Name Dose Route Start Last Admin Trade Name Freq PRN Reason Stop Dose Admin Hydromorphone HCl 1 mg 08/04/22 19:02 08/04/22 19:05 Hydromorphone 1 Mg/1ml Inj 1 Mg/Ml Syringe IV 08/04/22 19:03 Not Given STAT ONE Sodium Chloride 1,000 mls @ 999 mls/hr 08/04/22 17:40 08/04/22 18:47 Sodium Chloride 0.9% 1000 Ml IV 08/04/22 18:40 Infused .Q1H1M STA Infusion Sodium Chloride Confirm 08/04/22 17:44 Sodium Chloride 0.9% 1000 Ml Administered 08/04/22 17:45 Dose 1,000 mls @ ud .ROUTE .STK-MED ONE Sodium Chloride 1,000 mls @ 999 mls/hr 08/04/22 18:43 08/04/22 19:46 Sodium Chloride 0.9% 1000 Ml IV 08/04/22 19:43 Infused .Q1H1M STA Infusion Sodium Chloride Confirm 08/04/22 18:44 Sodium Chloride 0.9% 1000 Ml Administered 08/04/22 18:45 Dose 1,000 mls @ ud .ROUTE .STK-MED ONE Sodium Chloride 1,000 mls @ 999 mls/hr 08/04/22 19:54 08/04/22 19:56 Sodium Chloride 0.9% 1000 Ml IV 08/04/22 20:54 999 mls/hr .Q1H1M STA Administration Sodium Chloride Confirm 08/04/22 19:56 Sodium Chloride 0.9% 1000 Ml Administered 08/04/22 19:57 Dose 1,000 mls @ ud .ROUTE .STK-MED ONE Metronidazole 500 mg in 100 mls @ 200 mls/hr 08/04/22 20:00 08/04/22 20:05 Flagyl 500 Mg Ivpb IV 08/04/22 20:29 100 ml/hr STAT STA 100 mls/hr Administration Metronidazole Confirm 08/04/22 20:02 Flagyl 500 Mg Ivpb Administered 08/04/22 20:03 Dose 500 mg in 100 mls @ ud IV .STK-MED ONE Metoclopramide HCl 10 mg 08/04/22 19:52 08/04/22 19:53 Metoclopramide Hcl 10 Mg/2 Ml Vial IV 08/04/22 19:53 10 mg STAT ONE Administration Metoclopramide HCl Confirm 08/04/22 19:52 Metoclopramide Hcl 10 Mg/2 Ml Vial Administered 08/04/22 19:53 Dose 10 mg .ROUTE .STK-MED ONE Ondansetron HCl 4 mg 08/04/22 17:40 08/04/22 17:46 Ondansetron Hcl 4 Mg/2 Ml Vial IV 08/04/22 17:41 4 mg STAT ONE Administration Ondansetron HCl Confirm 08/04/22 17:44 Ondansetron Hcl 4 Mg/2 Ml Vial Administered 08/04/22 17:45 Dose 4 mg .ROUTE .STK-MED ONE Ondansetron HCl 4 mg 08/04/22 19:03 08/04/22 19:06 Ondansetron Hcl 4 Mg/2 Ml Vial IV 08/04/22 19:04 Not Given STAT ONE Lab/Rad Data: Laboratory Result Diagrams 08/04/22 20:06 08/04/22 20:06 Laboratory Results 08/04/22 08/04/22 08/04/22 Range/Units 20:50 20:06 20:06 WBC 18.4 H (4.0-10.5) x10^3/uL RBC 4.03 L (4.1-5.4) x10^6/uL Hgb 11.9 L (12.0-16.0) g/dL Hct 36.8 (35-47) % MCV 91.3 (78-100) fL MCH 29.5 (26-32) pg MCHC 32.3 (32-36) g/dL RDW 11.7 (11.5-14.0) % Plt Count 212 (150-450) x10^3/uL MPV 9.7 (7.5-11.0) fL Gran % 87.8 H (36.0-66.0) % Immature Gran % (Auto) 0.4 (0.00-0.4) % Nucleat RBC Rel Count 0.0 (0.00-0.1) % Eos # (Auto) 0.01 (0-0.5) x10^3/uL Immature Gran # (Auto) 0.07 H (0.00-0.03) x10^3u/L Absolute Lymphs (auto) 0.91 L (1.0-4.6) x10^3/uL Absolute Monos (auto) 1.19 (0.0-1.3) x10^3/uL Absolute Nucleated RBC 0.00 (0.00-0.01) x10^3u/L Lymphocytes % 4.9 L (24.0-44.0) % Monocytes % 6.5 (0.0-12.0) % Eosinophils % 0.1 (0.00-5.0) % Basophils % 0.3 (0.0-0.4) % Absolute Granulocytes 16.20 H (1.4-6.9) x10^3/uL Basophils # 0.05 (0-0.4) x10^3/uL Sodium 140 (137-145) mmol/L Potassium 3.5 (3.5-5.1) mmol/L Chloride 111 H (98-107) mmol/L Carbon Dioxide 18 L (22-30) mmol/L Anion Gap 14.1 (5-15) MEQ/L BUN 17 (7-17) mg/dL Creatinine 0.62 (0.52-1.04) mg/dL Estimated GFR > 60.0 ML/MIN Glucose 63 L (74-106) mg/dL POC Glucometer (74 to 106) mg/dL Lactic Acid 1.7 (0.4-2.0) Calcium 8.1 L D (8.4-10.2) mg/dL Total Bilirubin 2.40 H (0.2-1.3) mg/dL AST 16 (14-36) U/L ALT 15 (0-35) U/L Alkaline Phosphatase 77 (38-126) U/L Serum Total Protein 6.1 L (6.3-8.2) g/dL Albumin 3.8 (3.5-5.0) g/dL Amylase (30-110) U/L Lipase (23-300) U/L Serum , Qual (Negative) Monoscreen (Negative) Influenza Type A Ag (NEGATIVE) Influenza Type B Ag (NEGATIVE) RSV (PCR) (Negative) SARS-CoV-2 (PCR) (NEGATIVE) 08/04/22 08/04/22 08/04/22 Range/Units 18:44 17:55 17:50 WBC (4.0-10.5) x10^3/uL RBC (4.1-5.4) x10^6/uL Hgb (12.0-16.0) g/dL Hct (35-47) % MCV (78-100) fL MCH (26-32) pg MCHC (32-36) g/dL RDW (11.5-14.0) % Plt Count (150-450) x10^3/uL MPV (7.5-11.0) fL Gran % (36.0-66.0) % Immature Gran % (Auto) (0.00-0.4) % Nucleat RBC Rel Count (0.00-0.1) % Eos # (Auto) (0-0.5) x10^3/uL Immature Gran # (Auto) (0.00-0.03) x10^3u/L Absolute Lymphs (auto) (1.0-4.6) x10^3/uL Absolute Monos (auto) (0.0-1.3) x10^3/uL Absolute Nucleated RBC (0.00-0.01) x10^3u/L Lymphocytes % (24.0-44.0) % Monocytes % (0.0-12.0) % Eosinophils % (0.00-5.0) % Basophils % (0.0-0.4) % Absolute Granulocytes (1.4-6.9) x10^3/uL Basophils # (0-0.4) x10^3/uL Sodium (137-145) mmol/L Potassium (3.5-5.1) mmol/L Chloride (98-107) mmol/L Carbon Dioxide (22-30) mmol/L Anion Gap (5-15) MEQ/L BUN (7-17) mg/dL Creatinine (0.52-1.04) mg/dL Estimated GFR ML/MIN Glucose (74-106) mg/dL POC Glucometer (74 to 106) mg/dL Lactic Acid (0.4-2.0) Calcium (8.4-10.2) mg/dL Total Bilirubin (0.2-1.3) mg/dL AST (14-36) U/L ALT (0-35) U/L Alkaline Phosphatase (38-126) U/L Serum Total Protein (6.3-8.2) g/dL Albumin (3.5-5.0) g/dL Amylase (30-110) U/L Lipase (23-300) U/L Serum , Qual NEGATIVE (Negative) Monoscreen NEGATIVE (Negative) Influenza Type A Ag NEGATIVE (NEGATIVE) Influenza Type B Ag NEGATIVE (NEGATIVE) RSV (PCR) NEGATIVE (Negative) SARS-CoV-2 (PCR) NEGATIVE (NEGATIVE) 08/04/22 08/04/22 08/04/22 Range/Units 17:48 17:48 17:40 WBC 16.8 H (4.0-10.5) x10^3/uL RBC 4.72 (4.1-5.4) x10^6/uL Hgb 13.9 (12.0-16.0) g/dL Hct 43.6 (35-47) % MCV 92.4 (78-100) fL MCH 29.4 (26-32) pg MCHC 31.9 L (32-36) g/dL RDW 11.6 (11.5-14.0) % Plt Count 267 (150-450) x10^3/uL MPV 9.8 (7.5-11.0) fL Gran % 80.8 H (36.0-66.0) % Immature Gran % (Auto) 0.5 H (0.00-0.4) % Nucleat RBC Rel Count 0.0 (0.00-0.1) % Eos # (Auto) 0.11 (0-0.5) x10^3/uL Immature Gran # (Auto) 0.08 H (0.00-0.03) x10^3u/L Absolute Lymphs (auto) 2.06 (1.0-4.6) x10^3/uL Absolute Monos (auto) 0.93 (0.0-1.3) x10^3/uL Absolute Nucleated RBC 0.00 (0.00-0.01) x10^3u/L Lymphocytes % 12.2 L (24.0-44.0) % Monocytes % 5.5 (0.0-12.0) % Eosinophils % 0.7 (0.00-5.0) % Basophils % 0.3 (0.0-0.4) % Absolute Granulocytes 13.59 H (1.4-6.9) x10^3/uL Basophils # 0.05 (0-0.4) x10^3/uL Sodium 141 (137-145) mmol/L Potassium 3.4 L (3.5-5.1) mmol/L Chloride 105 (98-107) mmol/L Carbon Dioxide 18 L (22-30) mmol/L Anion Gap 21.5 H (5-15) MEQ/L BUN 21 H (7-17) mg/dL Creatinine 0.70 (0.52-1.04) mg/dL Estimated GFR > 60.0 ML/MIN Glucose 105 (74-106) mg/dL POC Glucometer (74 to 106) mg/dL Lactic Acid 3.8 H (0.4-2.0) Calcium 9.6 (8.4-10.2) mg/dL Total Bilirubin 2.80 H (0.2-1.3) mg/dL AST 20 (14-36) U/L ALT 18 (0-35) U/L Alkaline Phosphatase 106 (38-126) U/L Serum Total Protein 7.7 (6.3-8.2) g/dL Albumin 5.0 (3.5-5.0) g/dL Amylase 48 (30-110) U/L Lipase 46 (23-300) U/L Serum , Qual (Negative) Monoscreen (Negative) Influenza Type A Ag (NEGATIVE) Influenza Type B Ag (NEGATIVE) RSV (PCR) (Negative) SARS-CoV-2 (PCR) (NEGATIVE) 08/04/22 Range/Units 17:32 WBC (4.0-10.5) x10^3/uL RBC (4.1-5.4) x10^6/uL Hgb (12.0-16.0) g/dL Hct (35-47) % MCV (78-100) fL MCH (26-32) pg MCHC (32-36) g/dL RDW (11.5-14.0) % Plt Count (150-450) x10^3/uL MPV (7.5-11.0) fL Gran % (36.0-66.0) % Immature Gran % (Auto) (0.00-0.4) % Nucleat RBC Rel Count (0.00-0.1) % Eos # (Auto) (0-0.5) x10^3/uL Immature Gran # (Auto) (0.00-0.03) x10^3u/L Absolute Lymphs (auto) (1.0-4.6) x10^3/uL Absolute Monos (auto) (0.0-1.3) x10^3/uL Absolute Nucleated RBC (0.00-0.01) x10^3u/L Lymphocytes % (24.0-44.0) % Monocytes % (0.0-12.0) % Eosinophils % (0.00-5.0) % Basophils % (0.0-0.4) % Absolute Granulocytes (1.4-6.9) x10^3/uL Basophils # (0-0.4) x10^3/uL Sodium (137-145) mmol/L Potassium (3.5-5.1) mmol/L Chloride (98-107) mmol/L Carbon Dioxide (22-30) mmol/L Anion Gap (5-15) MEQ/L BUN (7-17) mg/dL Creatinine (0.52-1.04) mg/dL Estimated GFR ML/MIN Glucose (74-106) mg/dL POC Glucometer 102 (74 to 106) mg/dL Lactic Acid (0.4-2.0) Calcium (8.4-10.2) mg/dL Total Bilirubin (0.2-1.3) mg/dL AST (14-36) U/L ALT (0-35) U/L Alkaline Phosphatase (38-126) U/L Serum Total Protein (6.3-8.2) g/dL Albumin (3.5-5.0) g/dL Amylase (30-110) U/L Lipase (23-300) U/L Serum , Qual (Negative) Monoscreen (Negative) Influenza Type A Ag (NEGATIVE) Influenza Type B Ag (NEGATIVE) RSV (PCR) (Negative) SARS-CoV-2 (PCR) (NEGATIVE) - Progress Progress: improved <TAYE DAVIS - Last Filed: 08/04/22 21:01> - Progress Progress Note: 08/04/22 20:58 Patient had continued elevation of lactic acid low bicarb on electrolytes and some other abnormalities but the patient is not desirous of staying. She was offered an observation admission she feels like she wants to go home with her baby whom she is breast-feeding. (TAYE DAVIS) <RONNELL SIDHU - Last Filed: 08/04/22 17:45> - Departure Departure Disposition: Home Critical Care Time: No <TAYE DAVIS - Last Filed: 08/04/22 21:01> - Departure Clinical Impression: Gastroenteritis, Dehydration Condition: Stable Referrals: BOB MALDONADO [Primary Care Provider] - Follow up/PCP as directed Instructions: Viral Gastroenteritis, Adult (DC) Prescriptions: Ondansetron ODT 4 MG [Zofran Odt 4 mg] 4 mg PO Q6HPRN PRN #30 tab PRN Reason: Nausea Metronidazole 500 mg [Flagyl 500 MG] 500 mg PO TID #21 tablet
[2022-08-04] MEDS ORDERED: Sodium Chloride 0.9% 1000 ML 1,000 ML IV STA ×3 (17:40→19:54)
[2022-08-04] MEDS ORDERED: Zofran 4 MG/2 ML VIAL IV ONE ×2 (17:40→19:03)
[2022-08-04] MEDS ORDERED: Sodium Chloride 0.9% 1000 ML 1,000 ML ONE ×3 (17:44→19:56)
[2022-08-04] MEDS ORDERED: Zofran 4 MG/2 ML VIAL ONE (17:44)
[2022-08-04 17:51] LABS: Absolute Neutrophil Ct (ANC) 13.59 x10^3/uL (1.4-6.9); Basophil (Absolute #) 0.05 x10^3/uL (0-0.4); Eosinophil % 0.7 % (0.00-5.0); Eosinophil (Absolute #) 0.11 x10^3/uL (0-0.5); Hematocrit 43.6 % (35-47); Hemoglobin 13.9 g/dL (12.0-16.0); Lymphocyte (Absolute #) 2.06 x10^3/uL (1.0-4.6); Lymphocytes % 12.2 % (24.0-44.0); Mean Cell Volume 92.4 fL (78-100); Mean Corpuscular Hemoglobin 29.4 pg (26-32); Mean Corpuscular Hgb Concent. 31.9 g/dL (32-36); Mean Platelet Volume 9.8 fL (7.5-11.0); Monocyte (Absolute #) 0.93 x10^3/uL (0.0-1.3); Monocytes % 5.5 % (0.0-12.0); Neutrophil % 80.8 % (36.0-66.0); Platelet Count 267 x10^3/uL (150-450); Red Blood Count 4.72 x10^6/uL (4.1-5.4); Red Cell Distribution Width 11.6 % (11.5-14.0); White Blood Count 16.8 x10^3/uL (4.0-10.5)
[2022-08-04 18:22] LABS: ALKALINE PHOSPHATASE 106 U/L (38-126); AMYLASE 48 U/L (30-110); ANION GAP 21.5 MEQ/L (5-15); BLOOD UREA NITROGEN 21 mg/dL (7-17); CHLORIDE 105 mmol/L (98-107); Calcium 9.6 mg/dL (8.4-10.2); Carbon Dioxide 18 mmol/L (22-30); EST GLOMERULAR FILTRATION RATE > 60.0 ML/MIN; Glucose 105 mg/dL (74-106); LIPASE 46 U/L (23-300); Potassium 3.4 mmol/L (3.5-5.1); SGOT/AST 20 U/L (14-36); SGPT/ALT 18 U/L (0-35); SODIUM 141 mmol/L (137-145); Total Protein 7.7 g/dL (6.3-8.2)
[2022-08-04 18:36] LABS: INFLUENZA A NEGATIVE (NEGATIVE); INFLUENZA B NEGATIVE (NEGATIVE); RESPIRATORY SYNCTIAL VIRUS NEGATIVE (Negative); SARS-CoV-2 Xpert Express NEGATIVE (NEGATIVE)
[2022-08-04] MEDS ORDERED: Hydromorphone 1 mg/ml Injection IV ONE (19:02)
[2022-08-04] MEDS ORDERED: Reglan 10 MG/2 ML IV ONE (19:52)
[2022-08-04] MEDS ORDERED: Reglan 10 MG/2 ML ONE (19:52)
[2022-08-04] MEDS ORDERED: FLAGYL 500 MG IVPB 500 MG/100 ML BAG IV STA (20:00)
[2022-08-04] MEDS ORDERED: FLAGYL 500 MG IVPB 500 MG/100 ML BAG IV ONE (20:02)
[2022-08-04 20:14] LABS: Basophil (Absolute #) 0.05 x10^3/uL (0-0.4); Eosinophil % 0.1 % (0.00-5.0); Eosinophil (Absolute #) 0.01 x10^3/uL (0-0.5); Hematocrit 36.8 % (35-47); Hemoglobin 11.9 g/dL (12.0-16.0); Lymphocyte (Absolute #) 0.91 x10^3/uL (1.0-4.6); Lymphocytes % 4.9 % (24.0-44.0); Mean Cell Volume 91.3 fL (78-100); Mean Corpuscular Hemoglobin 29.5 pg (26-32); Mean Corpuscular Hgb Concent. 32.3 g/dL (32-36); Mean Platelet Volume 9.7 fL (7.5-11.0); Monocyte (Absolute #) 1.19 x10^3/uL (0.0-1.3); Monocytes % 6.5 % (0.0-12.0); Neutrophil % 87.8 % (36.0-66.0); Platelet Count 212 x10^3/uL (150-450); Red Blood Count 4.03 x10^6/uL (4.1-5.4); Red Cell Distribution Width 11.7 % (11.5-14.0); White Blood Count 18.4 x10^3/uL (4.0-10.5)
[2022-08-04 20:34] LABS: ALBUMIN 3.8 g/dL (3.5-5.0); ALKALINE PHOSPHATASE 77 U/L (38-126); ANION GAP 14.1 MEQ/L (5-15); BLOOD UREA NITROGEN 17 mg/dL (7-17); CHLORIDE 111 mmol/L (98-107); Calcium 8.1 mg/dL (8.4-10.2); Carbon Dioxide 18 mmol/L (22-30); Creatinine 1 0.62 mg/dL (0.52-1.04); EST GLOMERULAR FILTRATION RATE > 60.0 ML/MIN; Glucose 63 mg/dL (74-106); Potassium 3.5 mmol/L (3.5-5.1); SGOT/AST 16 U/L (14-36); SGPT/ALT 15 U/L (0-35); SODIUM 140 mmol/L (137-145); Total Protein 6.1 g/dL (6.3-8.2)
[2022-08-04 21:16] VITALS: BP 90/52; PULSE 80; O2SAT 99
--- NOTE | 2022-08-05 07:58 | XRAY ---
Indication: Abdomen pain, nausea, vomiting, and weakness. Multiple contiguous axial images obtained through the abdomen and pelvis using 80 cc Isovue 370 contrast. Comparison: December 15, 2019 Lung bases remain clear. Heart not enlarged. Noncontrasted stomach and bowel loops appear nonobstructed with normal appendix. No free fluid/air. Uterus demonstrates new IUD in situ. Both kidneys enhance and excrete. New finding 1.2 cm right upper pole cyst not seen on previous noncontrast exam. Remaining liver, gallbladder, pancreas, spleen, adrenal glands, kidneys, ureters, bladder, uterus, and aorta are unremarkable. No pathologic retroperitoneal lymphadenopathy. Osseous structures intact. Impression: 1. New 1.2 cm right renal cyst and uterine IUD. 2. Remaining CT abdomen/pelvis with contrast exam is again negative. Comment: Preliminary interpretation made by C. No critical discrepancy.
== END 2022-08-04 21:23 | disposition home or self-care (01) ==
LOC: ED 17:17
DX: K52.9 Noninfective gastroenteritis and colitis, unspecified (principal); E86.0 Dehydration; R10.84 Generalized abdominal pain; R11.2 Nausea with vomiting, unspecified; Z28.310 Unvaccinated for COVID-19
CPT/HCPCS: 0241U; 36000; 36415; 74177; 80053; 82150; 82947; 83605; 83690; 84703; 85025; 86308; 96374; 96375; 99284; J2405

== ENCOUNTER 2022-08-06 09:31 | Observation (INO) | payer OTHER ==
[2022-08-06] MEDS ORDERED: Reglan 10 MG/2 ML IV ONE (10:11)
[2022-08-06] MEDS ORDERED: Hydromorphone 1 mg/ml Injection IV ONE (10:11)
[2022-08-06] MEDS ORDERED: Sodium Chloride 0.9% 1000 ML 1,000 ML IV STA ×4 (10:11→12:40)
[2022-08-06] MEDS ORDERED: Sodium Chloride 0.9% 1000 ML 1,000 ML ONE ×4 (10:21→14:14)
[2022-08-06] MEDS ORDERED: Reglan 10 MG/2 ML ONE (10:21)
[2022-08-06 10:54] LABS: Absolute Neutrophil Ct (ANC) 7.32 x10^3/uL (1.4-6.9); Basophil (Absolute #) 0.02 x10^3/uL (0-0.4); Eosinophil % 0.5 % (0.00-5.0); Eosinophil (Absolute #) 0.04 x10^3/uL (0-0.5); Hematocrit 35.9 % (35-47); Hemoglobin 11.8 g/dL (12.0-16.0); Lymphocyte (Absolute #) 0.87 x10^3/uL (1.0-4.6); Lymphocytes % 9.9 % (24.0-44.0); Mean Corpuscular Hemoglobin 30.6 pg (26-32); Mean Corpuscular Hgb Concent. 32.9 g/dL (32-36); Mean Platelet Volume 9.9 fL (7.5-11.0); Monocytes % 5.7 % (0.0-12.0); Neutrophil % 83.4 % (36.0-66.0); Platelet Count 193 x10^3/uL (150-450); Red Blood Count 3.86 x10^6/uL (4.1-5.4); Red Cell Distribution Width 11.7 % (11.5-14.0); White Blood Count 8.8 x10^3/uL (4.0-10.5)
[2022-08-06 11:10] LABS: Appearance CLEAR (CLEAR); Bilirubin NEGATIVE (NEGATIVE); Dipstick done @ ? MAIN LAB; Glucose NEGATIVE (NEGATIVE); Ketones >=160 (NEGATIVE); Nitrite NEGATIVE (NEGATIVE); Ph 5.5 (5-6); Protein,Urine Dip NEGATIVE (Negative); RBC SMALL Ery/ul (0-5); Specific Gravity >=1.030 (1.005-1.025); Urobilinogen 0.2 mg/dL (0-1)
[2022-08-06 11:11] LABS: Epithelial Cells RARE /HPF (FEW); Mucus SLIGHT /HPF (NEGATIVE); WBC 0-2 /HPF (0-5)
[2022-08-06 11:12] LABS: Urine Cultured Indicated? NO
[2022-08-06 11:24] LABS: Amphetamine,Urine NEGATIVE (NEGATIVE); Barbiturate,Urine NEGATIVE (NEGATIVE); Benzodiazepine,Urine NEGATIVE (NEGATIVE); Cocaine,Urine NEGATIVE (NEGATIVE); Methadone,Urine NEGATIVE (NEGATIVE); Opiate,Urine NEGATIVE (NEGATIVE); PCP,Urine NEGATIVE (NEGATIVE); THC,Urine POSITIVE (NEGATIVE)
[2022-08-06 11:26] LABS: ALBUMIN 4.3 g/dL (3.5-5.0); ALKALINE PHOSPHATASE 77 U/L (38-126); AMYLASE 49 U/L (30-110); BLOOD UREA NITROGEN 14 mg/dL (7-17); CHLORIDE 108 mmol/L (98-107); Calcium 8.6 mg/dL (8.4-10.2); Carbon Dioxide 17 mmol/L (22-30); Creatinine 1 0.63 mg/dL (0.52-1.04); EST GLOMERULAR FILTRATION RATE > 60.0 ML/MIN; Glucose 62 mg/dL (74-106); HCG, Quantitative (Inhouse) < 2.39 mIU/ml; LIPASE 25 U/L (23-300); Potassium 3.3 mmol/L (3.5-5.1); SGOT/AST 23 U/L (14-36); SGPT/ALT 18 U/L (0-35); SODIUM 141 mmol/L (137-145); Total Protein 7.1 g/dL (6.3-8.2)
--- NOTE | 2022-08-06 12:53 | ERPHSYRPT ---
- History of Present Illness Time Seen by Provider: 08/06/22 10:05 Historian: patient Exam Limitations: no limitations Patient Subjective Stated Complaint: PT HERE FOR NAUSEA, SHE WAS SEEN ON SAT. FOR THE SAME THING, SHE STATES SHE IS BETTER BUT IS STILL NOT ABLE TO EAT WELL, HAS TAKEN ZOFRAN TODAY Triage Nursing Assessment: PT ALERT, RESP EASY, SKIN W/P/D. ABD SOFT, NO BM FOR 2 DAYS NOW. MOVES ALL EXT WELL Physician History: Patient is a 21-year-old white female who presents with a complaint of abdominal pain nausea and vomiting. She was seen on Saturday and was admitted or was not admitted because she refused at that time she was given 3 L of fluid and she elected to be discharged. Saturday evening and Saturday she had improvement in her symptoms on Saturday she helped cut pumpkins etc. this morning she awoke with return of abdominal discomfort nausea but no vomiting and no diarrhea. She is breast-feeding. She has been seen on 2 previous occasions she has had 1 ultrasound of the gallbladder which was negative and 2 CT scans of the abdomen pelvis which were unremarkable. Timing/Duration: today Activities at Onset: none Quality: dullness Abdominal Pain Onset Location: generalized abdomen Pain Radiation: no radiation Associated Symptoms: nausea Allergies/Adverse Reactions: No Known Drug Allergies Allergy (Verified 08/06/22 10:03) Hx Tetanus, Diphtheria Vaccination/Date Given: Yes Hx Influenza Vaccination/Date Given: Yes Hx Pneumococcal Vaccination/Date Given: No Immunizations Up to Date: Yes Travel Risk - International Travel Have you traveled outside of the country in past 3 weeks: No - Coronavirus Screening Are you exhibiting any of the following symptoms?: No Close contact with a COVID-19 positive Pt in past 14-21 Days: No - Vaccine Status Have you recieved a Covid-19 vaccination: No - Review of Systems Constitutional: No Fever, No Chills Eyes: No Symptoms Ears, Nose, & Throat: No Symptoms Respiratory: No Cough, No Dyspnea Cardiac: No Chest Pain, No Edema, No Syncope Abdominal/Gastrointestinal: Abdominal Pain, Nausea, No Vomiting, No Diarrhea Genitourinary Symptoms: No Dysuria Musculoskeletal: No Back Pain, No Neck Pain Skin: No Rash Neurological: No Dizziness, No Focal Weakness, No Sensory Changes Psychological: No Symptoms Endocrine: No Symptoms All Other Systems: Reviewed and Negative - Past Medical History Pertinent Past Medical History: Yes Neurological History: No Pertinent History ENT History: No Pertinent History Cardiac History: Angina Respiratory History: No Pertinent History Endocrine Medical History: No Pertinent History Musculoskeletal History: No Pertinent History GI Medical History: GERD, Gallbladder Disease, Hemorrhoids History: No Pertinent History Psycho-Social History: Depression Female Reproductive Disorders: Menstrual Problems Other Medical History: hiatal hernia and barretts esophagus. - Past Surgical History Past Surgical History: Yes Neuro Surgical History: No Pertinent History Cardiac: No Pertinent History Respiratory: No Pertinent History Gastrointestinal: No Pertinent History Genitourinary: No Pertinent History Musculoskeletal: Orthopedic Surgery Female Surgical History: No Pertinent History Other Surgical History: carpal and cubital tunnel bilat, wisdom teeth - Social History Smoking Status: Former smoker How long have you smoked: 1 Exposure to second hand smoke: No Drug Use: none Patient Lives Alone: No Significant Family History: no pertinent family hx - Female History Hx Last Menstrual Period: 8 MONTHS AGO Hx Now: No - Nursing Vital Signs Nursing Vital Signs: Initial Vital Signs Temperature 97.9 F 08/06/22 10:00 Pulse Rate 82 08/06/22 10:00 Respiratory Rate 18 08/06/22 10:00 Blood Pressure 100/56 08/06/22 10:00 O2 Sat by Pulse Oximetry 99 08/06/22 10:00 Pain Scale Pain Intensity 0 - Physical Exam General Appearance: mild distress, alert Eye Exam: PERRL/EOMI, eyes nml inspection Ears, Nose, Throat Exam: normal ENT inspection, pharynx normal, moist mucous membranes Neck Exam: normal inspection, non-tender, supple, full range of motion Respiratory Exam: normal breath sounds, lungs clear, No respiratory distress Cardiovascular Exam: regular rate/rhythm, normal heart sounds Gastrointestinal/Abdomen Exam: soft, tenderness, No mass Back Exam: normal inspection, normal range of motion, No CVA tenderness, No vertebral tenderness Extremity Exam: normal inspection, normal range of motion, pelvis stable Neurologic Exam: alert, oriented x 3, cooperative, normal mood/affect, nml cerebellar function, sensation nml, No motor deficits Skin Exam: normal color, warm, dry SpO2: 98 - Course Nursing assessment & vital signs reviewed: Yes Ordered Tests: Active Orders 24 hr Category Date Time Status IV Insertion STAT Care 08/06/22 10:11 Active AMYLASE Stat Lab 08/06/22 10:19 Completed BLOOD CULTURE Stat Lab 08/06/22 10:37 Received CBC W DIFF Stat Lab 08/06/22 10:19 Completed CMP Stat Lab 08/06/22 10:19 Completed FECAL OCCULT BLOOD - SCREENING Stat Lab 08/06/22 10:11 Ordered HCG, Quantitative (Inhouse) Stat Lab 08/06/22 10:19 Completed LIPASE Stat Lab 08/06/22 10:19 Completed Lactic Acid Stat Lab 08/06/22 10:28 Completed TROPONIN Q4H Lab 08/06/22 10:19 Completed TROPONIN Q4H Lab 08/06/22 14:15 Ordered TROPONIN Q4H Lab 08/06/22 18:15 Ordered UA W/RFX CULTURE Stat Lab 08/06/22 10:15 Completed Urine Triage Profile Stat Lab 08/06/22 10:15 Completed Medication Summary Generic Name Dose Route Start Last Admin Trade Name Freq PRN Reason Stop Dose Admin Sodium Chloride 1,000 mls @ 999 mls/hr 08/06/22 12:28 08/06/22 12:29 Sodium Chloride 0.9% 1000 Ml IV 08/06/22 13:28 999 mls/hr .Q1H1M STA Administration Sodium Chloride 1,000 mls @ 999 mls/hr 08/06/22 12:40 Sodium Chloride 0.9% 1000 Ml IV 08/06/22 13:40 .Q1H1M STA Discontinued Medications Generic Name Dose Route Start Last Admin Trade Name Freq PRN Reason Stop Dose Admin Hydromorphone HCl 0.5 mg 08/06/22 10:11 08/06/22 10:29 Hydromorphone 1 Mg/1ml Inj 1 Mg/Ml Syringe IV 08/06/22 10:12 Not Given STAT ONE Sodium Chloride 1,000 mls @ 999 mls/hr 08/06/22 10:11 08/06/22 11:23 Sodium Chloride 0.9% 1000 Ml IV 08/06/22 11:11 Infused .Q1H1M STA Infusion Sodium Chloride Confirm 08/06/22 10:21 Sodium Chloride 0.9% 1000 Ml Administered 08/06/22 10:22 Dose 1,000 mls @ ud .ROUTE .STK-MED ONE Sodium Chloride 1,000 mls @ 999 mls/hr 08/06/22 11:18 08/06/22 12:28 Sodium Chloride 0.9% 1000 Ml IV 08/06/22 12:18 Infused .Q1H1M STA Infusion Sodium Chloride Confirm 08/06/22 11:30 Sodium Chloride 0.9% 1000 Ml Administered 08/06/22 11:31 Dose 1,000 mls @ ud .ROUTE .STK-MED ONE Sodium Chloride Confirm 08/06/22 12:27 Sodium Chloride 0.9% 1000 Ml Administered 08/06/22 12:28 Dose 1,000 mls @ ud .ROUTE .STK-MED ONE Metoclopramide HCl 10 mg 08/06/22 10:11 08/06/22 10:24 Metoclopramide Hcl 10 Mg/2 Ml Vial IV 08/06/22 10:12 10 mg STAT ONE Administration Metoclopramide HCl Confirm 08/06/22 10:21 Metoclopramide Hcl 10 Mg/2 Ml Vial Administered 08/06/22 10:22 Dose 10 mg .ROUTE .STK-MED ONE Lab/Rad Data: Laboratory Result Diagrams 08/06/22 10:19 08/06/22 10:19 Laboratory Results 08/06/22 08/06/22 08/06/22 Range/Units 10:28 10:19 10:19 WBC (4.0-10.5) x10^3/uL RBC (4.1-5.4) x10^6/uL Hgb (12.0-16.0) g/dL Hct (35-47) % MCV (78-100) fL MCH (26-32) pg MCHC (32-36) g/dL RDW (11.5-14.0) % Plt Count (150-450) x10^3/uL MPV (7.5-11.0) fL Gran % (36.0-66.0) % Immature Gran % (Auto) (0.00-0.4) % Nucleat RBC Rel Count (0.00-0.1) % Eos # (Auto) (0-0.5) x10^3/uL Immature Gran # (Auto) (0.00-0.03) x10^3u/L Absolute Lymphs (auto) (1.0-4.6) x10^3/uL Absolute Monos (auto) (0.0-1.3) x10^3/uL Absolute Nucleated RBC (0.00-0.01) x10^3u/L Lymphocytes % (24.0-44.0) % Monocytes % (0.0-12.0) % Eosinophils % (0.00-5.0) % Basophils % (0.0-0.4) % Absolute Granulocytes (1.4-6.9) x10^3/uL Basophils # (0-0.4) x10^3/uL Sodium 141 (137-145) mmol/L Potassium 3.3 L (3.5-5.1) mmol/L Chloride 108 H (98-107) mmol/L Carbon Dioxide 17 L (22-30) mmol/L Anion Gap 19.0 H (5-15) MEQ/L BUN 14 (7-17) mg/dL Creatinine 0.63 (0.52-1.04) mg/dL Estimated GFR > 60.0 ML/MIN Glucose 62 L (74-106) mg/dL Lactic Acid 1.2 (0.4-2.0) Calcium 8.6 (8.4-10.2) mg/dL Total Bilirubin 3.00 H (0.2-1.3) mg/dL AST 23 (14-36) U/L ALT 18 (0-35) U/L Alkaline Phosphatase 77 (38-126) U/L Troponin I < 0.012 (0.000-0.034) ng/mL Serum Total Protein 7.1 (6.3-8.2) g/dL Albumin 4.3 (3.5-5.0) g/dL Amylase 49 (30-110) U/L Lipase 25 (23-300) U/L Beta HCG, Quant < 2.39 mIU/ml Urinalys Dipstick Clnc Urine Color (YELLOW) Urine Appearance (CLEAR) Urine pH (5-6) Ur Specific [place] (1.005-1.025) POC Urine Protein Conf (Negative) Urine Ketones (NEGATIVE) Urine Nitrite (NEGATIVE) Urine Bilirubin (NEGATIVE) Urine Urobilinogen (0-1) mg/dL Urine Leukocytes (NEGATIVE) Urine WBC (Auto) (0-5) /HPF Urine RBC (Auto) (0-2) /HPF U Epithel Cells (Auto) (FEW) /HPF Urine Bacteria (Auto) (NEGATIVE) /HPF Urine RBC (0-5) Pete/ul Urine Mucus (Auto) (NEGATIVE) /HPF Ur Culture Indicated? Urine Glucose (NEGATIVE) mg/dL Urine Opiates Level (NEGATIVE) Ur Methadone (NEGATIVE) Urine Barbiturates (NEGATIVE) Ur Phencyclidine (PCP) (NEGATIVE) Urine Amphetamine (NEGATIVE) U Benzodiazepine Level (NEGATIVE) Urine Cocaine (NEGATIVE) Urine Marijuana (THC) (NEGATIVE) 08/06/22 08/06/22 08/06/22 Range/Units 10:19 10:15 10:15 WBC 8.8 (4.0-10.5) x10^3/uL RBC 3.86 L (4.1-5.4) x10^6/uL Hgb 11.8 L (12.0-16.0) g/dL Hct 35.9 (35-47) % MCV 93.0 (78-100) fL MCH 30.6 (26-32) pg MCHC 32.9 (32-36) g/dL RDW 11.7 (11.5-14.0) % Plt Count 193 (150-450) x10^3/uL MPV 9.9 (7.5-11.0) fL Gran % 83.4 H (36.0-66.0) % Immature Gran % (Auto) 0.3 (0.00-0.4) % Nucleat RBC Rel Count 0.0 (0.00-0.1) % Eos # (Auto) 0.04 (0-0.5) x10^3/uL Immature Gran # (Auto) 0.03 (0.00-0.03) x10^3u/L Absolute Lymphs (auto) 0.87 L (1.0-4.6) x10^3/uL Absolute Monos (auto) 0.50 (0.0-1.3) x10^3/uL Absolute Nucleated RBC 0.00 (0.00-0.01) x10^3u/L Lymphocytes % 9.9 L (24.0-44.0) % Monocytes % 5.7 (0.0-12.0) % Eosinophils % 0.5 (0.00-5.0) % Basophils % 0.2 (0.0-0.4) % Absolute Granulocytes 7.32 H (1.4-6.9) x10^3/uL Basophils # 0.02 (0-0.4) x10^3/uL Sodium (137-145) mmol/L Potassium (3.5-5.1) mmol/L Chloride (98-107) mmol/L Carbon Dioxide (22-30) mmol/L Anion Gap (5-15) MEQ/L BUN (7-17) mg/dL Creatinine (0.52-1.04) mg/dL Estimated GFR ML/MIN Glucose (74-106) mg/dL Lactic Acid (0.4-2.0) Calcium (8.4-10.2) mg/dL Total Bilirubin (0.2-1.3) mg/dL AST (14-36) U/L ALT (0-35) U/L Alkaline Phosphatase (38-126) U/L Troponin I (0.000-0.034) ng/mL Serum Total Protein (6.3-8.2) g/dL Albumin (3.5-5.0) g/dL Amylase (30-110) U/L Lipase (23-300) U/L Beta HCG, Quant mIU/ml Urinalys Dipstick Clnc MAIN LAB Urine Color YELLOW (YELLOW) Urine Appearance CLEAR (CLEAR) Urine pH 5.5 (5-6) Ur Specific [place] >=1.030 A (1.005-1.025) POC Urine Protein Conf NEGATIVE (Negative) Urine Ketones >=160 A (NEGATIVE) Urine Nitrite NEGATIVE (NEGATIVE) Urine Bilirubin NEGATIVE (NEGATIVE) Urine Urobilinogen 0.2 (0-1) mg/dL Urine Leukocytes NEGATIVE (NEGATIVE) Urine WBC (Auto) 0-2 (0-5) /HPF Urine RBC (Auto) 6-10 A (0-2) /HPF U Epithel Cells (Auto) RARE (FEW) /HPF Urine Bacteria (Auto) NONE (NEGATIVE) /HPF Urine RBC SMALL A (0-5) Pete/ul Urine Mucus (Auto) SLIGHT A (NEGATIVE) /HPF Ur Culture Indicated? NO Urine Glucose NEGATIVE (NEGATIVE) mg/dL Urine Opiates Level NEGATIVE (NEGATIVE) Ur Methadone NEGATIVE (NEGATIVE) Urine Barbiturates NEGATIVE (NEGATIVE) Ur Phencyclidine (PCP) NEGATIVE (NEGATIVE) Urine Amphetamine NEGATIVE (NEGATIVE) U Benzodiazepine Level NEGATIVE (NEGATIVE) Urine Cocaine NEGATIVE (NEGATIVE) Urine Marijuana (THC) POSITIVE (NEGATIVE) - Progress Progress: improved Discussed with : Juan Will see patient in: hospital (observation) - Departure Departure Disposition: Observation Clinical Impression: Dehydration Condition: Stable Critical Care Time: No Referrals: BOB MALDONADO [Primary Care Provider] - Follow up/PCP as directed
[2022-08-06] MEDS ORDERED: K-LYTE PO ONE (12:56)
[2022-08-06] MEDS ORDERED: K-LYTE ONE (14:13)
[2022-08-06 15:03] LABS: INFLUENZA A NEGATIVE (NEGATIVE); INFLUENZA B NEGATIVE (NEGATIVE); RESPIRATORY SYNCTIAL VIRUS NEGATIVE (Negative); SARS-CoV-2 Xpert Express NEGATIVE (NEGATIVE)
[2022-08-06] MEDS: Lactated Ringers 1,000 ML IV SCH (17:12)
[2022-08-06] MEDS: Reglan 10 MG/2 ML IV SCH ×2 (17:16→21:10)
[2022-08-06 17:48] LABS: ANION GAP 16.8 MEQ/L (5-15); BLOOD UREA NITROGEN 7 mg/dL (7-17); CHLORIDE 110 mmol/L (98-107); Calcium 8.3 mg/dL (8.4-10.2); EST GLOMERULAR FILTRATION RATE > 60.0 ML/MIN; Glucose 70 mg/dL (74-106); MAGNESIUM 1.6 mg/dL (1.6-2.3); SODIUM 138 mmol/L (137-145)
[2022-08-06 17:50] LABS: Carbon Dioxide 15 mmol/L (22-30)
[2022-08-06 19:46] LABS: A-aADO2 9; ABG POTASSIUM 3.3 (3.5-5.1); ARTERIAL BLD GAS O2 SATURATION 98.4 % (95-100); ARTERIAL BLOOD GAS BASE EXCESS -5.2 (-2.0-2.0); ARTERIAL BLOOD GAS FIO2 21 %; ARTERIAL BLOOD GAS PCO2 31 mmHg (35-45); ARTERIAL BLOOD GAS PO2 102 mmHg (75-100); ARTERIAL BLOOD GAS pH 7.39 (7.35-7.45); CARBOXYHEMOGLOBIN 0.2 % THgb (0.0-6.9); HCO3- 18.8 (22-28); HGB O2 SAT 97.2 g/dF (94-100)
[2022-08-06 19:47] LABS: ABG SITE RIGHT RADIAL; ALLEN TEST OK? YES
[2022-08-06] MEDS: Flagyl 500 MG PO SCH (22:27)
[2022-08-07] MEDS: Lactated Ringers 1,000 ML IV SCH (02:27)
[2022-08-07 05:09] LABS: Absolute Neutrophil Ct (ANC) 4.04 x10^3/uL (1.4-6.9); Basophil (Absolute #) 0.04 x10^3/uL (0-0.4); Eosinophil % 1.6 % (0.00-5.0); Eosinophil (Absolute #) 0.12 x10^3/uL (0-0.5); Hematocrit 33.7 % (35-47); Hemoglobin 11.1 g/dL (12.0-16.0); Lymphocyte (Absolute #) 2.39 x10^3/uL (1.0-4.6); Lymphocytes % 32.8 % (24.0-44.0); Mean Cell Volume 89.9 fL (78-100); Mean Corpuscular Hemoglobin 29.6 pg (26-32); Mean Corpuscular Hgb Concent. 32.9 g/dL (32-36); Mean Platelet Volume 9.6 fL (7.5-11.0); Monocyte (Absolute #) 0.69 x10^3/uL (0.0-1.3); Monocytes % 9.5 % (0.0-12.0); Neutrophil % 55.5 % (36.0-66.0); Platelet Count 185 x10^3/uL (150-450); Red Blood Count 3.75 x10^6/uL (4.1-5.4); Red Cell Distribution Width 11.8 % (11.5-14.0); White Blood Count 7.3 x10^3/uL (4.0-10.5)
[2022-08-07 05:34] LABS: ALBUMIN 3.5 g/dL (3.5-5.0); ALKALINE PHOSPHATASE 65 U/L (38-126); ANION GAP 10.7 MEQ/L (5-15); BLOOD UREA NITROGEN 7 mg/dL (7-17); CHLORIDE 110 mmol/L (98-107); Calcium 8.5 mg/dL (8.4-10.2); Carbon Dioxide 22 mmol/L (22-30); Creatinine 1 0.64 mg/dL (0.52-1.04); EST GLOMERULAR FILTRATION RATE > 60.0 ML/MIN; Glucose 74 mg/dL (74-106); Potassium 3.9 mmol/L (3.5-5.1); SGOT/AST 19 U/L (14-36); SGPT/ALT 15 U/L (0-35); SODIUM 138 mmol/L (137-145); Total Protein 5.9 g/dL (6.3-8.2)
[2022-08-07] MEDS: Reglan 10 MG/2 ML IV SCH (06:31)
[2022-08-07 07:37] VITALS: BP 97/50; PULSE 75; O2SAT 96
[2022-08-07] MEDS: Flagyl 500 MG PO SCH (09:30)
[2022-08-07] MEDS ORDERED: ZOFRAN ODT 4 MG PO PRN (09:37)
[2022-08-07] MEDS ORDERED: FLUOXETINE HCL 90 MG PO SCH (09:45)
[2022-08-07] MEDS ORDERED: MEDICATION INTERVENTION MC SCH (09:45)
--- NOTE | 2022-08-07 10:04 | PCM.SSS ---
History of Present Illness - Chief Complaint Chief Complaint: DEHYDRATION History of Present Illness: is a 21 year old female pt of mine from [facility] who was admitted through ER for dehydration. She had been in the ER 3d ago wtih dehydration and the ER doctor wanted to admit her but she insisted on going home to be with her baby. Pt woke up 3d ago feeling fine, but started vomiting at 4:30 pm. She started having diarrhea as well, and by evening was vomiting yellow and having yellow runny diarrhea. She scooted into the living room because she was unable to walk out of the bathroom, and had to be carried to the car. Received several bags of IV fluid. No fever. Was having pain in her entire abdomen. She received flagyl and reglan rx in ER. Has had abd pain off an don since. Reglan does help. Thinks she's hungry currently. Four days ago she ate, but ate nothing 3 days ago. Ate very little in the past 2 days. Had GB/liver u/s on 08/02/22 which was nl. - Review of Systems Constitutional: Fatigue, Weakness Abdominal/Gastrointestinal: Abdominal Pain, Nausea, Vomiting, Diarrhea All Other Systems: Reviewed and Negative Medications & Allergies Home Medications: Home Medication List Metronidazole 500 mg [Flagyl 500 MG] 500 mg PO TID #21 tablet 08/04/22 [Rx Confirmed 08/06/22] Ondansetron ODT 4 MG [Zofran Odt 4 mg] 4 mg PO Q6HPRN PRN #30 tab 08/04/22 [Rx Confirmed 08/06/22] Fluoxetine HCl [Fluoxetine Dr] 90 mg PO WEEKLY 08/06/22 [History Confirmed 08/06/22] Metoclopramide HCl 10 mg/2 ml* [Reglan 10 MG/2 ML] 10 mg IV ACHS 08/07/22 [Rx] Allergies/Adverse Reactions: Allergies Allergy/AdvReac Type Severity Reaction Status Date / Time No Known Drug Allergies Allergy Verified 08/06/22 10:03 - Past Medical History Past Medical History: Yes Neurological History: No Pertinent History ENT History: No Pertinent History Cardiac History: Angina Respiratory History: No Pertinent History Endocrine Medical History: No Pertinent History Musculoskelatal History: No Pertinent History GI Medical History: GERD, Gallbladder Disease, Hemorrhoids History: No Pertinent History Pyscho-Social History: Depression Reproductive Disorders: Menstrual Problems Comment: hiatal hernia and barretts esophagus. - Female History Hx Last Menstrual Period: 8 MONTHS AGO Are you now?: No - Past Surgical History Past Surgical History: Yes Neuro Surgical History: No Pertinent History Cardiac History: No Pertinent History Respiratory Surgery: No Pertinent History GI Surgical History: No Pertinent History Genitourinary Surgical Hx: No Pertinent History Musculskeletal Surgical Hx: Orthopedic Surgery Female Surgical History: No Pertinent History Other Surgical History: carpal and cubital tunnel bilat, wisdom teeth - Social History Smoking Status: Never smoker How long have you smoked: 1 Exposure to second hand smoke: No Alcohol: Occasionally Drug Use: marijuana Significant Family History: no pertinent family hx - Physical Exam Vital Signs: Vital Signs - 24 hr Temp Pulse Resp BP Pulse Ox 08/07/22 07:36 97.8 F 75 16 97/50 96 08/07/22 04:00 98.3 F 90 16 117/77 93 L 08/07/22 00:00 97.5 F 95 H 16 104/69 95 08/06/22 22:00 70 110/65 08/06/22 20:00 83 113/73 08/06/22 18:00 97.7 F 78 15 110/59 97 08/06/22 16:16 97.9 F 98 H 16 106/60 99 08/06/22 16:14 97.9 F 98 H 16 106/60 99 08/06/22 15:34 108 H 18 98 08/06/22 12:53 98 08/06/22 11:41 100 H 18 98 08/06/22 10:00 97.9 F 82 18 100/56 99 Results - Labs Lab/Micro Results: Lab Results-Last 24 Hours 08/06/22 08/06/22 08/06/22 Range/Units 10:15 10:15 10:19 WBC 8.8 (4.0-10.5) x10^3/uL RBC 3.86 L (4.1-5.4) x10^6/uL Hgb 11.8 L (12.0-16.0) g/dL Hct 35.9 (35-47) % MCV 93.0 (78-100) fL MCH 30.6 (26-32) pg MCHC 32.9 (32-36) g/dL RDW 11.7 (11.5-14.0) % Plt Count 193 (150-450) x10^3/uL MPV 9.9 (7.5-11.0) fL Gran % 83.4 H (36.0-66.0) % Immature Gran % (Auto) 0.3 (0.00-0.4) % Nucleat RBC Rel Count 0.0 (0.00-0.1) % Eos # (Auto) 0.04 (0-0.5) x10^3/uL Immature Gran # (Auto) 0.03 (0.00-0.03) x10^3u/L Absolute Lymphs (auto) 0.87 L (1.0-4.6) x10^3/uL Absolute Monos (auto) 0.50 (0.0-1.3) x10^3/uL Absolute Nucleated RBC 0.00 (0.00-0.01) x10^3u/L Lymphocytes % 9.9 L (24.0-44.0) % Monocytes % 5.7 (0.0-12.0) % Eosinophils % 0.5 (0.00-5.0) % Basophils % 0.2 (0.0-0.4) % Absolute Granulocytes 7.32 H (1.4-6.9) x10^3/uL Basophils # 0.02 (0-0.4) x10^3/uL Puncture Site pCO2 (35-45) mmHg pO2 (75-100) mmHg Base Excess (-2.0-2.0) O2 Saturation (94-100) g/dF ABG pH (7.35-7.45) ABG HCO3 (22-28) ABG O2 Sat (Measured) (95-100) % Brodie Test A-a Gradient a/A Ratio Hemoglobin Carboxyhemoglobin (0.0-6.9) % THgb Methemoglobin (1.4-1.5) % Temperature C POC O2 Flow Rate % Sodium (137-145) mmol/L Potassium (3.5-5.1) mmol/L Chloride (98-107) mmol/L Carbon Dioxide (22-30) mmol/L Anion Gap (5-15) MEQ/L BUN (7-17) mg/dL Creatinine (0.52-1.04) mg/dL Estimated GFR ML/MIN Glucose (74-106) mg/dL Lactic Acid (0.4-2.0) Calcium (8.4-10.2) mg/dL Magnesium (1.6-2.3) mg/dL Total Bilirubin (0.2-1.3) mg/dL AST (14-36) U/L ALT (0-35) U/L Alkaline Phosphatase (38-126) U/L Troponin I (0.000-0.034) ng/mL Serum Total Protein (6.3-8.2) g/dL Albumin (3.5-5.0) g/dL Amylase (30-110) U/L Lipase (23-300) U/L Beta HCG, Quant mIU/ml Urinalys Dipstick Clnc MAIN LAB Urine Color YELLOW (YELLOW) Urine Appearance CLEAR (CLEAR) Urine pH 5.5 (5-6) Ur Specific Dermott >=1.030 A (1.005-1.025) POC Urine Protein Conf NEGATIVE (Negative) Urine Ketones >=160 A (NEGATIVE) Urine Nitrite NEGATIVE (NEGATIVE) Urine Bilirubin NEGATIVE (NEGATIVE) Urine Urobilinogen 0.2 (0-1) mg/dL Urine Leukocytes NEGATIVE (NEGATIVE) Urine WBC (Auto) 0-2 (0-5) /HPF Urine RBC (Auto) 6-10 A (0-2) /HPF U Epithel Cells (Auto) RARE (FEW) /HPF Urine Bacteria (Auto) NONE (NEGATIVE) /HPF Urine RBC SMALL A (0-5) Pete/ul Urine Mucus (Auto) SLIGHT A (NEGATIVE) /HPF Ur Culture Indicated? NO Urine Glucose NEGATIVE (NEGATIVE) mg/dL Urine Opiates Level NEGATIVE (NEGATIVE) Ur Methadone NEGATIVE (NEGATIVE) Urine Barbiturates NEGATIVE (NEGATIVE) Ur Phencyclidine (PCP) NEGATIVE (NEGATIVE) Urine Amphetamine NEGATIVE (NEGATIVE) U Benzodiazepine Level NEGATIVE (NEGATIVE) Urine Cocaine NEGATIVE (NEGATIVE) Urine Marijuana (THC) POSITIVE (NEGATIVE) Influenza Type A Ag (NEGATIVE) Influenza Type B Ag (NEGATIVE) RSV (PCR) (Negative) SARS-CoV-2 (PCR) (NEGATIVE) 08/06/22 08/06/22 08/06/22 Range/Units 10:19 10:19 10:28 WBC (4.0-10.5) x10^3/uL RBC (4.1-5.4) x10^6/uL Hgb (12.0-16.0) g/dL Hct (35-47) % MCV (78-100) fL MCH (26-32) pg MCHC (32-36) g/dL RDW (11.5-14.0) % Plt Count (150-450) x10^3/uL MPV (7.5-11.0) fL Gran % (36.0-66.0) % Immature Gran % (Auto) (0.00-0.4) % Nucleat RBC Rel Count (0.00-0.1) % Eos # (Auto) (0-0.5) x10^3/uL Immature Gran # (Auto) (0.00-0.03) x10^3u/L Absolute Lymphs (auto) (1.0-4.6) x10^3/uL Absolute Monos (auto) (0.0-1.3) x10^3/uL Absolute Nucleated RBC (0.00-0.01) x10^3u/L Lymphocytes % (24.0-44.0) % Monocytes % (0.0-12.0) % Eosinophils % (0.00-5.0) % Basophils % (0.0-0.4) % Absolute Granulocytes (1.4-6.9) x10^3/uL Basophils # (0-0.4) x10^3/uL Puncture Site pCO2 (35-45) mmHg pO2 (75-100) mmHg Base Excess (-2.0-2.0) O2 Saturation (94-100) g/dF ABG pH (7.35-7.45) ABG HCO3 (22-28) ABG O2 Sat (Measured) (95-100) % Brodie Test A-a Gradient a/A Ratio Hemoglobin Carboxyhemoglobin (0.0-6.9) % THgb Methemoglobin (1.4-1.5) % Temperature C POC O2 Flow Rate % Sodium 141 (137-145) mmol/L Potassium 3.3 L (3.5-5.1) mmol/L Chloride 108 H (98-107) mmol/L Carbon Dioxide 17 L (22-30) mmol/L Anion Gap 19.0 H (5-15) MEQ/L BUN 14 (7-17) mg/dL Creatinine 0.63 (0.52-1.04) mg/dL Estimated GFR > 60.0 ML/MIN Glucose 62 L (74-106) mg/dL Lactic Acid 1.2 (0.4-2.0) Calcium 8.6 (8.4-10.2) mg/dL Magnesium (1.6-2.3) mg/dL Total Bilirubin 3.00 H (0.2-1.3) mg/dL AST 23 (14-36) U/L ALT 18 (0-35) U/L Alkaline Phosphatase 77 (38-126) U/L Troponin I < 0.012 (0.000-0.034) ng/mL Serum Total Protein 7.1 (6.3-8.2) g/dL Albumin 4.3 (3.5-5.0) g/dL Amylase 49 (30-110) U/L Lipase 25 (23-300) U/L Beta HCG, Quant < 2.39 mIU/ml Urinalys Dipstick Clnc Urine Color (YELLOW) Urine Appearance (CLEAR) Urine pH (5-6) Ur Specific Dermott (1.005-1.025) POC Urine Protein Conf (Negative) Urine Ketones (NEGATIVE) Urine Nitrite (NEGATIVE) Urine Bilirubin (NEGATIVE) Urine Urobilinogen (0-1) mg/dL Urine Leukocytes (NEGATIVE) Urine WBC (Auto) (0-5) /HPF Urine RBC (Auto) (0-2) /HPF U Epithel Cells (Auto) (FEW) /HPF Urine Bacteria (Auto) (NEGATIVE) /HPF Urine RBC (0-5) Pete/ul Urine Mucus (Auto) (NEGATIVE) /HPF Ur Culture Indicated? Urine Glucose (NEGATIVE) mg/dL Urine Opiates Level (NEGATIVE) Ur Methadone (NEGATIVE) Urine Barbiturates (NEGATIVE) Ur Phencyclidine (PCP) (NEGATIVE) Urine Amphetamine (NEGATIVE) U Benzodiazepine Level (NEGATIVE) Urine Cocaine (NEGATIVE) Urine Marijuana (THC) (NEGATIVE) Influenza Type A Ag (NEGATIVE) Influenza Type B Ag (NEGATIVE) RSV (PCR) (Negative) SARS-CoV-2 (PCR) (NEGATIVE) 08/06/22 08/06/22 08/06/22 Range/Units 14:15 17:30 19:40 WBC (4.0-10.5) x10^3/uL RBC (4.1-5.4) x10^6/uL Hgb (12.0-16.0) g/dL Hct (35-47) % MCV (78-100) fL MCH (26-32) pg MCHC (32-36) g/dL RDW (11.5-14.0) % Plt Count (150-450) x10^3/uL MPV (7.5-11.0) fL Gran % (36.0-66.0) % Immature Gran % (Auto) (0.00-0.4) % Nucleat RBC Rel Count (0.00-0.1) % Eos # (Auto) (0-0.5) x10^3/uL Immature Gran # (Auto) (0.00-0.03) x10^3u/L Absolute Lymphs (auto) (1.0-4.6) x10^3/uL Absolute Monos (auto) (0.0-1.3) x10^3/uL Absolute Nucleated RBC (0.00-0.01) x10^3u/L Lymphocytes % (24.0-44.0) % Monocytes % (0.0-12.0) % Eosinophils % (0.00-5.0) % Basophils % (0.0-0.4) % Absolute Granulocytes (1.4-6.9) x10^3/uL Basophils # (0-0.4) x10^3/uL Puncture Site RIGHT RADIAL pCO2 31 L (35-45) mmHg pO2 102 H (75-100) mmHg Base Excess -5.2 L (-2.0-2.0) O2 Saturation 97.2 (94-100) g/dF ABG pH 7.39 (7.35-7.45) ABG HCO3 18.8 L (22-28) ABG O2 Sat (Measured) 98.4 (95-100) % Brodie Test YES A-a Gradient 9 a/A Ratio 0.92 Hemoglobin 12.0 Carboxyhemoglobin 0.2 (0.0-6.9) % THgb Methemoglobin 1.0 L (1.4-1.5) % Temperature 37.0 C POC O2 Flow Rate 21 % Sodium 138 (137-145) mmol/L Potassium 4.0 D 3.3 L (3.5-5.1) mmol/L Chloride 110 H (98-107) mmol/L Carbon Dioxide 15 L* (22-30) mmol/L Anion Gap 16.8 H (5-15) MEQ/L BUN 7 (7-17) mg/dL Creatinine 0.60 (0.52-1.04) mg/dL Estimated GFR > 60.0 ML/MIN Glucose 70 L (74-106) mg/dL Lactic Acid (0.4-2.0) Calcium 8.3 L (8.4-10.2) mg/dL Magnesium 1.6 (1.6-2.3) mg/dL Total Bilirubin (0.2-1.3) mg/dL AST (14-36) U/L ALT (0-35) U/L Alkaline Phosphatase (38-126) U/L Troponin I (0.000-0.034) ng/mL Serum Total Protein (6.3-8.2) g/dL Albumin (3.5-5.0) g/dL Amylase (30-110) U/L Lipase (23-300) U/L Beta HCG, Quant mIU/ml Urinalys Dipstick Clnc Urine Color (YELLOW) Urine Appearance (CLEAR) Urine pH (5-6) Ur Specific Dermott (1.005-1.025) POC Urine Protein Conf (Negative) Urine Ketones (NEGATIVE) Urine Nitrite (NEGATIVE) Urine Bilirubin (NEGATIVE) Urine Urobilinogen (0-1) mg/dL Urine Leukocytes (NEGATIVE) Urine WBC (Auto) (0-5) /HPF Urine RBC (Auto) (0-2) /HPF U Epithel Cells (Auto) (FEW) /HPF Urine Bacteria (Auto) (NEGATIVE) /HPF Urine RBC (0-5) Pete/ul Urine Mucus (Auto) (NEGATIVE) /HPF Ur Culture Indicated? Urine Glucose (NEGATIVE) mg/dL Urine Opiates Level (NEGATIVE) Ur Methadone (NEGATIVE) Urine Barbiturates (NEGATIVE) Ur Phencyclidine (PCP) (NEGATIVE) Urine Amphetamine (NEGATIVE) U Benzodiazepine Level (NEGATIVE) Urine Cocaine (NEGATIVE) Urine Marijuana (THC) (NEGATIVE) Influenza Type A Ag NEGATIVE (NEGATIVE) Influenza Type B Ag NEGATIVE (NEGATIVE) RSV (PCR) NEGATIVE (Negative) SARS-CoV-2 (PCR) NEGATIVE (NEGATIVE) 08/07/22 08/07/22 Range/Units 05:00 05:00 WBC 7.3 (4.0-10.5) x10^3/uL RBC 3.75 L (4.1-5.4) x10^6/uL Hgb 11.1 L (12.0-16.0) g/dL Hct 33.7 L (35-47) % MCV 89.9 (78-100) fL MCH 29.6 (26-32) pg MCHC 32.9 (32-36) g/dL RDW 11.8 (11.5-14.0) % Plt Count 185 (150-450) x10^3/uL MPV 9.6 (7.5-11.0) fL Gran % 55.5 (36.0-66.0) % Immature Gran % (Auto) 0.1 (0.00-0.4) % Nucleat RBC Rel Count 0.0 (0.00-0.1) % Eos # (Auto) 0.12 (0-0.5) x10^3/uL Immature Gran # (Auto) 0.01 (0.00-0.03) x10^3u/L Absolute Lymphs (auto) 2.39 (1.0-4.6) x10^3/uL Absolute Monos (auto) 0.69 (0.0-1.3) x10^3/uL Absolute Nucleated RBC 0.00 (0.00-0.01) x10^3u/L Lymphocytes % 32.8 (24.0-44.0) % Monocytes % 9.5 (0.0-12.0) % Eosinophils % 1.6 (0.00-5.0) % Basophils % 0.5 (0.0-0.4) % Absolute Granulocytes 4.04 (1.4-6.9) x10^3/uL Basophils # 0.04 (0-0.4) x10^3/uL Puncture Site pCO2 (35-45) mmHg pO2 (75-100) mmHg Base Excess (-2.0-2.0) O2 Saturation (94-100) g/dF ABG pH (7.35-7.45) ABG HCO3 (22-28) ABG O2 Sat (Measured) (95-100) % Brodie Test A-a Gradient a/A Ratio Hemoglobin Carboxyhemoglobin (0.0-6.9) % THgb Methemoglobin (1.4-1.5) % Temperature C POC O2 Flow Rate % Sodium 138 (137-145) mmol/L Potassium 3.9 (3.5-5.1) mmol/L Chloride 110 H (98-107) mmol/L Carbon Dioxide 22 (22-30) mmol/L Anion Gap 10.7 (5-15) MEQ/L BUN 7 (7-17) mg/dL Creatinine 0.64 (0.52-1.04) mg/dL Estimated GFR > 60.0 ML/MIN Glucose 74 (74-106) mg/dL Lactic Acid (0.4-2.0) Calcium 8.5 (8.4-10.2) mg/dL Magnesium (1.6-2.3) mg/dL Total Bilirubin 2.20 H (0.2-1.3) mg/dL AST 19 (14-36) U/L ALT 15 (0-35) U/L Alkaline Phosphatase 65 (38-126) U/L Troponin I (0.000-0.034) ng/mL Serum Total Protein 5.9 L (6.3-8.2) g/dL Albumin 3.5 (3.5-5.0) g/dL Amylase (30-110) U/L Lipase (23-300) U/L Beta HCG, Quant mIU/ml Urinalys Dipstick Clnc Urine Color (YELLOW) Urine Appearance (CLEAR) Urine pH (5-6) Ur Specific Dermott (1.005-1.025) POC Urine Protein Conf (Negative) Urine Ketones (NEGATIVE) Urine Nitrite (NEGATIVE) Urine Bilirubin (NEGATIVE) Urine Urobilinogen (0-1) mg/dL Urine Leukocytes (NEGATIVE) Urine WBC (Auto) (0-5) /HPF Urine RBC (Auto) (0-2) /HPF U Epithel Cells (Auto) (FEW) /HPF Urine Bacteria (Auto) (NEGATIVE) /HPF Urine RBC (0-5) Pete/ul Urine Mucus (Auto) (NEGATIVE) /HPF Ur Culture Indicated? Urine Glucose (NEGATIVE) mg/dL Urine Opiates Level (NEGATIVE) Ur Methadone (NEGATIVE) Urine Barbiturates (NEGATIVE) Ur Phencyclidine (PCP) (NEGATIVE) Urine Amphetamine (NEGATIVE) U Benzodiazepine Level (NEGATIVE) Urine Cocaine (NEGATIVE) Urine Marijuana (THC) (NEGATIVE) Influenza Type A Ag (NEGATIVE) Influenza Type B Ag (NEGATIVE) RSV (PCR) (Negative) SARS-CoV-2 (PCR) (NEGATIVE) Assessment/Plan (1) Dehydration Current Visit: Yes Status: Resolved Code(s): E86.0 - DEHYDRATION (2) Gastroenteritis Current Visit: No Status: Resolved Code(s): K52.9 - NONINFECTIVE GASTROENTERITIS AND COLITIS, UNSPECIFIED (3) Abdominal pain Current Visit: Yes Status: Acute Qualifiers: Abdominal location: generalized Qualified Code(s): R10.84 - Generalized abdominal pain Code(s): R10.9 - UNSPECIFIED ABDOMINAL PAIN Hospital Summary - Hospital Course Hospital Course: Pt is 21yo female admitted with dehydration. Her bicarb was initially 17-18, was down to 15 afterward, ABG was improved, and this morning bicarb is 22. She is feeling better. Will consider EGD outpatient. Will do heavy metals 24 hour urine (pt has well that has been untested). Push fluids. - Vitals & Intake/Output Vital Signs: Vital Signs Temperature 97.8 F 08/07/22 07:36 Pulse Rate 75 08/07/22 07:36 Respiratory Rate 16 08/07/22 07:36 Blood Pressure 97/50 08/07/22 07:36 O2 Sat by Pulse Oximetry 96 08/07/22 07:36 Intake & Output: Intake & Output 08/04/22 08/05/22 08/06/22 08/07/22 11:59 11:59 11:59 11:59 Intake Total 2724 Output Total 1300 Balance 1424 Weight 74.843 kg 77.6 kg - Lab Result Diagrams: 08/07/22 05:00 08/07/22 05:00 Lab Results-Last 24 Hrs: Lab Results-Last 24 Hours 08/06/22 08/06/22 08/06/22 Range/Units 10:15 10:15 10:19 WBC 8.8 (4.0-10.5) x10^3/uL RBC 3.86 L (4.1-5.4) x10^6/uL Hgb 11.8 L (12.0-16.0) g/dL Hct 35.9 (35-47) % MCV 93.0 (78-100) fL MCH 30.6 (26-32) pg MCHC 32.9 (32-36) g/dL RDW 11.7 (11.5-14.0) % Plt Count 193 (150-450) x10^3/uL MPV 9.9 (7.5-11.0) fL Gran % 83.4 H (36.0-66.0) % Immature Gran % (Auto) 0.3 (0.00-0.4) % Nucleat RBC Rel Count 0.0 (0.00-0.1) % Eos # (Auto) 0.04 (0-0.5) x10^3/uL Immature Gran # (Auto) 0.03 (0.00-0.03) x10^3u/L Absolute Lymphs (auto) 0.87 L (1.0-4.6) x10^3/uL Absolute Monos (auto) 0.50 (0.0-1.3) x10^3/uL Absolute Nucleated RBC 0.00 (0.00-0.01) x10^3u/L Lymphocytes % 9.9 L (24.0-44.0) % Monocytes % 5.7 (0.0-12.0) % Eosinophils % 0.5 (0.00-5.0) % Basophils % 0.2 (0.0-0.4) % Absolute Granulocytes 7.32 H (1.4-6.9) x10^3/uL Basophils # 0.02 (0-0.4) x10^3/uL Puncture Site pCO2 (35-45) mmHg pO2 (75-100) mmHg Base Excess (-2.0-2.0) O2 Saturation (94-100) g/dF ABG pH (7.35-7.45) ABG HCO3 (22-28) ABG O2 Sat (Measured) (95-100) % Brodie Test A-a Gradient a/A Ratio Hemoglobin Carboxyhemoglobin (0.0-6.9) % THgb Methemoglobin (1.4-1.5) % Temperature C POC O2 Flow Rate % Sodium (137-145) mmol/L Potassium (3.5-5.1) mmol/L Chloride (98-107) mmol/L Carbon Dioxide (22-30) mmol/L Anion Gap (5-15) MEQ/L BUN (7-17) mg/dL Creatinine (0.52-1.04) mg/dL Estimated GFR ML/MIN Glucose (74-106) mg/dL Lactic Acid (0.4-2.0) Calcium (8.4-10.2) mg/dL Magnesium (1.6-2.3) mg/dL Total Bilirubin (0.2-1.3) mg/dL AST (14-36) U/L ALT (0-35) U/L Alkaline Phosphatase (38-126) U/L Troponin I (0.000-0.034) ng/mL Serum Total Protein (6.3-8.2) g/dL Albumin (3.5-5.0) g/dL Amylase (30-110) U/L Lipase (23-300) U/L Beta HCG, Quant mIU/ml Urinalys Dipstick Clnc MAIN LAB Urine Color YELLOW (YELLOW) Urine Appearance CLEAR (CLEAR) Urine pH 5.5 (5-6) Ur Specific [place]ott >=1.030 A (1.005-1.025) POC Urine Protein Conf NEGATIVE (Negative) Urine Ketones >=160 A (NEGATIVE) Urine Nitrite NEGATIVE (NEGATIVE) Urine Bilirubin NEGATIVE (NEGATIVE) Urine Urobilinogen 0.2 (0-1) mg/dL Urine Leukocytes NEGATIVE (NEGATIVE) Urine WBC (Auto) 0-2 (0-5) /HPF Urine RBC (Auto) 6-10 A (0-2) /HPF U Epithel Cells (Auto) RARE (FEW) /HPF Urine Bacteria (Auto) NONE (NEGATIVE) /HPF Urine RBC SMALL A (0-5) Pete/ul Urine Mucus (Auto) SLIGHT A (NEGATIVE) /HPF Ur Culture Indicated? NO Urine Glucose NEGATIVE (NEGATIVE) mg/dL Urine Opiates Level NEGATIVE (NEGATIVE) Ur Methadone NEGATIVE (NEGATIVE) Urine Barbiturates NEGATIVE (NEGATIVE) Ur Phencyclidine (PCP) NEGATIVE (NEGATIVE) Urine Amphetamine NEGATIVE (NEGATIVE) U Benzodiazepine Level NEGATIVE (NEGATIVE) Urine Cocaine NEGATIVE (NEGATIVE) Urine Marijuana (THC) POSITIVE (NEGATIVE) Influenza Type A Ag (NEGATIVE) Influenza Type B Ag (NEGATIVE) RSV (PCR) (Negative) SARS-CoV-2 (PCR) (NEGATIVE) 08/06/22 08/06/22 08/06/22 Range/Units 10:19 10:19 10:28 WBC (4.0-10.5) x10^3/uL RBC (4.1-5.4) x10^6/uL Hgb (12.0-16.0) g/dL Hct (35-47) % MCV (78-100) fL MCH (26-32) pg MCHC (32-36) g/dL RDW (11.5-14.0) % Plt Count (150-450) x10^3/uL MPV (7.5-11.0) fL Gran % (36.0-66.0) % Immature Gran % (Auto) (0.00-0.4) % Nucleat RBC Rel Count (0.00-0.1) % Eos # (Auto) (0-0.5) x10^3/uL Immature Gran # (Auto) (0.00-0.03) x10^3u/L Absolute Lymphs (auto) (1.0-4.6) x10^3/uL Absolute Monos (auto) (0.0-1.3) x10^3/uL Absolute Nucleated RBC (0.00-0.01) x10^3u/L Lymphocytes % (24.0-44.0) % Monocytes % (0.0-12.0) % Eosinophils % (0.00-5.0) % Basophils % (0.0-0.4) % Absolute Granulocytes (1.4-6.9) x10^3/uL Basophils # (0-0.4) x10^3/uL Puncture Site pCO2 (35-45) mmHg pO2 (75-100) mmHg Base Excess (-2.0-2.0) O2 Saturation (94-100) g/dF ABG pH (7.35-7.45) ABG HCO3 (22-28) ABG O2 Sat (Measured) (95-100) % Brodie Test A-a Gradient a/A Ratio Hemoglobin Carboxyhemoglobin (0.0-6.9) % THgb Methemoglobin (1.4-1.5) % Temperature C POC O2 Flow Rate % Sodium 141 (137-145) mmol/L Potassium 3.3 L (3.5-5.1) mmol/L Chloride 108 H (98-107) mmol/L Carbon Dioxide 17 L (22-30) mmol/L Anion Gap 19.0 H (5-15) MEQ/L BUN 14 (7-17) mg/dL Creatinine 0.63 (0.52-1.04) mg/dL Estimated GFR > 60.0 ML/MIN Glucose 62 L (74-106) mg/dL Lactic Acid 1.2 (0.4-2.0) Calcium 8.6 (8.4-10.2) mg/dL Magnesium (1.6-2.3) mg/dL Total Bilirubin 3.00 H (0.2-1.3) mg/dL AST 23 (14-36) U/L ALT 18 (0-35) U/L Alkaline Phosphatase 77 (38-126) U/L Troponin I < 0.012 (0.000-0.034) ng/mL Serum Total Protein 7.1 (6.3-8.2) g/dL Albumin 4.3 (3.5-5.0) g/dL Amylase 49 (30-110) U/L Lipase 25 (23-300) U/L Beta HCG, Quant < 2.39 mIU/ml Urinalys Dipstick Clnc Urine Color (YELLOW) Urine Appearance (CLEAR) Urine pH (5-6) Ur Specific Dermott (1.005-1.025) POC Urine Protein Conf (Negative) Urine Ketones (NEGATIVE) Urine Nitrite (NEGATIVE) Urine Bilirubin (NEGATIVE) Urine Urobilinogen (0-1) mg/dL Urine Leukocytes (NEGATIVE) Urine WBC (Auto) (0-5) /HPF Urine RBC (Auto) (0-2) /HPF U Epithel Cells (Auto) (FEW) /HPF Urine Bacteria (Auto) (NEGATIVE) /HPF Urine RBC (0-5) Pete/ul Urine Mucus (Auto) (NEGATIVE) /HPF Ur Culture Indicated? Urine Glucose (NEGATIVE) mg/dL Urine Opiates Level (NEGATIVE) Ur Methadone (NEGATIVE) Urine Barbiturates (NEGATIVE) Ur Phencyclidine (PCP) (NEGATIVE) Urine Amphetamine (NEGATIVE) U Benzodiazepine Level (NEGATIVE) Urine Cocaine (NEGATIVE) Urine Marijuana (THC) (NEGATIVE) Influenza Type A Ag (NEGATIVE) Influenza Type B Ag (NEGATIVE) RSV (PCR) (Negative) SARS-CoV-2 (PCR) (NEGATIVE) 08/06/22 08/06/22 08/06/22 Range/Units 14:15 17:30 19:40 WBC (4.0-10.5) x10^3/uL RBC (4.1-5.4) x10^6/uL Hgb (12.0-16.0) g/dL Hct (35-47) % MCV (78-100) fL MCH (26-32) pg MCHC (32-36) g/dL RDW (11.5-14.0) % Plt Count (150-450) x10^3/uL MPV (7.5-11.0) fL Gran % (36.0-66.0) % Immature Gran % (Auto) (0.00-0.4) % Nucleat RBC Rel Count (0.00-0.1) % Eos # (Auto) (0-0.5) x10^3/uL Immature Gran # (Auto) (0.00-0.03) x10^3u/L Absolute Lymphs (auto) (1.0-4.6) x10^3/uL Absolute Monos (auto) (0.0-1.3) x10^3/uL Absolute Nucleated RBC (0.00-0.01) x10^3u/L Lymphocytes % (24.0-44.0) % Monocytes % (0.0-12.0) % Eosinophils % (0.00-5.0) % Basophils % (0.0-0.4) % Absolute Granulocytes (1.4-6.9) x10^3/uL Basophils # (0-0.4) x10^3/uL Puncture Site RIGHT RADIAL pCO2 31 L (35-45) mmHg pO2 102 H (75-100) mmHg Base Excess -5.2 L (-2.0-2.0) O2 Saturation 97.2 (94-100) g/dF ABG pH 7.39 (7.35-7.45) ABG HCO3 18.8 L (22-28) ABG O2 Sat (Measured) 98.4 (95-100) % Brodie Test YES A-a Gradient 9 a/A Ratio 0.92 Hemoglobin 12.0 Carboxyhemoglobin 0.2 (0.0-6.9) % THgb Methemoglobin 1.0 L (1.4-1.5) % Temperature 37.0 C POC O2 Flow Rate 21 % Sodium 138 (137-145) mmol/L Potassium 4.0 D 3.3 L (3.5-5.1) mmol/L Chloride 110 H (98-107) mmol/L Carbon Dioxide 15 L* (22-30) mmol/L Anion Gap 16.8 H (5-15) MEQ/L BUN 7 (7-17) mg/dL Creatinine 0.60 (0.52-1.04) mg/dL Estimated GFR > 60.0 ML/MIN Glucose 70 L (74-106) mg/dL Lactic Acid (0.4-2.0) Calcium 8.3 L (8.4-10.2) mg/dL Magnesium 1.6 (1.6-2.3) mg/dL Total Bilirubin (0.2-1.3) mg/dL AST (14-36) U/L ALT (0-35) U/L Alkaline Phosphatase (38-126) U/L Troponin I (0.000-0.034) ng/mL Serum Total Protein (6.3-8.2) g/dL Albumin (3.5-5.0) g/dL Amylase (30-110) U/L Lipase (23-300) U/L Beta HCG, Quant mIU/ml Urinalys Dipstick Clnc Urine Color (YELLOW) Urine Appearance (CLEAR) Urine pH (5-6) Ur Specific Dermott (1.005-1.025) POC Urine Protein Conf (Negative) Urine Ketones (NEGATIVE) Urine Nitrite (NEGATIVE) Urine Bilirubin (NEGATIVE) Urine Urobilinogen (0-1) mg/dL Urine Leukocytes (NEGATIVE) Urine WBC (Auto) (0-5) /HPF Urine RBC (Auto) (0-2) /HPF U Epithel Cells (Auto) (FEW) /HPF Urine Bacteria (Auto) (NEGATIVE) /HPF Urine RBC (0-5) Pete/ul Urine Mucus (Auto) (NEGATIVE) /HPF Ur Culture Indicated? Urine Glucose (NEGATIVE) mg/dL Urine Opiates Level (NEGATIVE) Ur Methadone (NEGATIVE) Urine Barbiturates (NEGATIVE) Ur Phencyclidine (PCP) (NEGATIVE) Urine Amphetamine (NEGATIVE) U Benzodiazepine Level (NEGATIVE) Urine Cocaine (NEGATIVE) Urine Marijuana (THC) (NEGATIVE) Influenza Type A Ag NEGATIVE (NEGATIVE) Influenza Type B Ag NEGATIVE (NEGATIVE) RSV (PCR) NEGATIVE (Negative) SARS-CoV-2 (PCR) NEGATIVE (NEGATIVE) 08/07/22 08/07/22 Range/Units 05:00 05:00 WBC 7.3 (4.0-10.5) x10^3/uL RBC 3.75 L (4.1-5.4) x10^6/uL Hgb 11.1 L (12.0-16.0) g/dL Hct 33.7 L (35-47) % MCV 89.9 (78-100) fL MCH 29.6 (26-32) pg MCHC 32.9 (32-36) g/dL RDW 11.8 (11.5-14.0) % Plt Count 185 (150-450) x10^3/uL MPV 9.6 (7.5-11.0) fL Gran % 55.5 (36.0-66.0) % Immature Gran % (Auto) 0.1 (0.00-0.4) % Nucleat RBC Rel Count 0.0 (0.00-0.1) % Eos # (Auto) 0.12 (0-0.5) x10^3/uL Immature Gran # (Auto) 0.01 (0.00-0.03) x10^3u/L Absolute Lymphs (auto) 2.39 (1.0-4.6) x10^3/uL Absolute Monos (auto) 0.69 (0.0-1.3) x10^3/uL Absolute Nucleated RBC 0.00 (0.00-0.01) x10^3u/L Lymphocytes % 32.8 (24.0-44.0) % Monocytes % 9.5 (0.0-12.0) % Eosinophils % 1.6 (0.00-5.0) % Basophils % 0.5 (0.0-0.4) % Absolute Granulocytes 4.04 (1.4-6.9) x10^3/uL Basophils # 0.04 (0-0.4) x10^3/uL Puncture Site pCO2 (35-45) mmHg pO2 (75-100) mmHg Base Excess (-2.0-2.0) O2 Saturation (94-100) g/dF ABG pH (7.35-7.45) ABG HCO3 (22-28) ABG O2 Sat (Measured) (95-100) % Brodie Test A-a Gradient a/A Ratio Hemoglobin Carboxyhemoglobin (0.0-6.9) % THgb Methemoglobin (1.4-1.5) % Temperature C POC O2 Flow Rate % Sodium 138 (137-145) mmol/L Potassium 3.9 (3.5-5.1) mmol/L Chloride 110 H (98-107) mmol/L Carbon Dioxide 22 (22-30) mmol/L Anion Gap 10.7 (5-15) MEQ/L BUN 7 (7-17) mg/dL Creatinine 0.64 (0.52-1.04) mg/dL Estimated GFR > 60.0 ML/MIN Glucose 74 (74-106) mg/dL Lactic Acid (0.4-2.0) Calcium 8.5 (8.4-10.2) mg/dL Magnesium (1.6-2.3) mg/dL Total Bilirubin 2.20 H (0.2-1.3) mg/dL AST 19 (14-36) U/L ALT 15 (0-35) U/L Alkaline Phosphatase 65 (38-126) U/L Troponin I (0.000-0.034) ng/mL Serum Total Protein 5.9 L (6.3-8.2) g/dL Albumin 3.5 (3.5-5.0) g/dL Amylase (30-110) U/L Lipase (23-300) U/L Beta HCG, Quant mIU/ml Urinalys Dipstick Clnc Urine Color (YELLOW) Urine Appearance (CLEAR) Urine pH (5-6) Ur Specific [place] (1.005-1.025) POC Urine Protein Conf (Negative) Urine Ketones (NEGATIVE) Urine Nitrite (NEGATIVE) Urine Bilirubin (NEGATIVE) Urine Urobilinogen (0-1) mg/dL Urine Leukocytes (NEGATIVE) Urine WBC (Auto) (0-5) /HPF Urine RBC (Auto) (0-2) /HPF U Epithel Cells (Auto) (FEW) /HPF Urine Bacteria (Auto) (NEGATIVE) /HPF Urine RBC (0-5) Pete/ul Urine Mucus (Auto) (NEGATIVE) /HPF Ur Culture Indicated? Urine Glucose (NEGATIVE) mg/dL Urine Opiates Level (NEGATIVE) Ur Methadone (NEGATIVE) Urine Barbiturates (NEGATIVE) Ur Phencyclidine (PCP) (NEGATIVE) Urine Amphetamine (NEGATIVE) U Benzodiazepine Level (NEGATIVE) Urine Cocaine (NEGATIVE) Urine Marijuana (THC) (NEGATIVE) Influenza Type A Ag (NEGATIVE) Influenza Type B Ag (NEGATIVE) RSV (PCR) (Negative) SARS-CoV-2 (PCR) (NEGATIVE) - Discharge Disposition: Home, Self-Care Condition: Good Prescriptions: New Metoclopramide HCl 10 mg/2 ml* [Reglan 10 MG/2 ML] 10 mg IV ACHS Continue Ondansetron ODT 4 MG [Zofran Odt 4 mg] 4 mg PO Q6HPRN PRN #30 tab PRN Reason: Nausea Metronidazole 500 mg [Flagyl 500 MG] 500 mg PO TID #21 tablet Fluoxetine HCl [Fluoxetine Dr] 90 mg PO WEEKLY Follow up with: BOB MALDONADO [Primary Care Provider] -
== END 2022-08-07 10:55 | disposition home or self-care (01) ==
LOC: ED 09:31 → MED SURG 15:46
PROVIDERS: ADMIT Family Medicine; ATTEND Family Medicine
DX: E86.0 Dehydration (principal); K52.9 Noninfective gastroenteritis and colitis, unspecified; R10.84 Generalized abdominal pain; Z79.899 Other long term (current) drug therapy; Z20.828 Contact with and (suspected) exposure to other viral communicable diseases
CPT/HCPCS: 0241U; 36000; 36415; 36600; 80048; 80053; 80307; 81015; 82150; 82375; 82803; 83605; 83655; 83690; 83735; 83825; 84484; 84702; 85025; 87040; 96360; 96374; 99285; G0378; A9270-GY

== ENCOUNTER 2023-04-01 00:02 | Emergency (ER) | payer OTHER ==
--- NOTE | 2023-04-01 00:25 | ERPHSYRPT ---
- History of Present Illness Source: patient Exam Limitations: no limitations Patient Subjective Stated Complaint: pt to ER for grease burn on Left palm of hand. pt states she was cooking dinner and burned her hand aprox around 2300- 2330. Triage Nursing Assessment: Pt to ER with burn to Left palm of hand this evening. pt ambulatory, A&Ox4. Physician History: Patient is a 22-year-old female presents with superficial burn of her thenar eminence on her left hand. Patient reports she was in the kitchen and had a grease burn occurred. Patient reports she is able to move all her digits without any concerns. Patient reports sensations intact. Patient denies having any bleeding, charge from the burn site. Denies any other concerns. Timing/Duration: today Severity: moderate Allergies/Adverse Reactions: No Known Drug Allergies Allergy (Verified 04/01/23 00:17) Hx Tetanus, Diphtheria Vaccination/Date Given: Yes Hx Influenza Vaccination/Date Given: Yes Hx Pneumococcal Vaccination/Date Given: No Immunizations Up to Date: Yes Travel Risk - International Travel Have you traveled outside of the country in past 3 weeks: No - Coronavirus Screening Are you exhibiting any of the following symptoms?: No Close contact with a COVID-19 positive Pt in past 14-21 Days: No - Vaccine Status Have you recieved a Covid-19 vaccination: No - Review of Systems Constitutional: No Fever, No Chills Eyes: No Symptoms Ears, Nose, & Throat: No Symptoms Respiratory: No Cough, No Dyspnea Cardiac: No Chest Pain, No Edema, No Syncope Abdominal/Gastrointestinal: No Abdominal Pain, No Nausea, No Vomiting, No Diarrhea Genitourinary Symptoms: No Dysuria Musculoskeletal: No Back Pain, No Neck Pain Skin: Other (Burn of her thenar eminence of her left hand.) Neurological: No Dizziness, No Focal Weakness, No Sensory Changes Psychological: No Symptoms Endocrine: No Symptoms All Other Systems: Reviewed and Negative - Past Medical History Pertinent Past Medical History: Yes Neurological History: No Pertinent History ENT History: No Pertinent History Cardiac History: Angina Respiratory History: No Pertinent History Endocrine Medical History: No Pertinent History Musculoskeletal History: No Pertinent History GI Medical History: GERD, Gallbladder Disease, Hemorrhoids History: No Pertinent History Psycho-Social History: Depression Female Reproductive Disorders: Menstrual Problems Other Medical History: hiatal hernia and barretts esophagus. - Past Surgical History Past Surgical History: Yes Neuro Surgical History: No Pertinent History Cardiac: No Pertinent History Respiratory: No Pertinent History Gastrointestinal: No Pertinent History Genitourinary: No Pertinent History Musculoskeletal: Orthopedic Surgery Female Surgical History: No Pertinent History Other Surgical History: carpal and cubital tunnel bilat, wisdom teeth - Social History Smoking Status: Never smoker How long have you smoked: 1 Exposure to second hand smoke: No Drug Use: none Patient Lives Alone: No Significant Family History: no pertinent family hx - Female History Hx Now: No - Nursing Vital Signs Nursing Vital Signs: Initial Vital Signs Temperature 97.7 F 04/01/23 00:09 Pulse Rate 67 04/01/23 00:09 Respiratory Rate 18 04/01/23 00:09 O2 Sat by Pulse Oximetry 100 04/01/23 00:09 Pain Scale Pain Intensity 9 - Physical Exam General Appearance: no apparent distress, alert Eye Exam: eyes nml inspection Ears, Nose, Throat Exam: normal ENT inspection Neck Exam: normal inspection Respiratory Exam: normal breath sounds, lungs clear, No respiratory distress Cardiovascular Exam: regular rate/rhythm, normal heart sounds, normal peripheral pulses Gastrointestinal/Abdomen Exam: soft, normal bowel sounds, No tenderness, No mass Back Exam: normal inspection, normal range of motion, No CVA tenderness, No vertebral tenderness Extremity Exam: normal inspection, normal range of motion, other (Patient has full range of motion of her left wrist, all digits of her left hand. Radial pulses intact. Distal digit sensations are intact.) Neurologic Exam: alert, oriented x 3, cooperative, normal mood/affect, nml cerebellar function, nml station & gait, sensation nml, No motor deficits Skin Exam: rash, other (Superficial burn noted about 2 cm x 2 cm. started forming a blister on top.) Lymphatic Exam: No adenopathy SpO2: 100 Ordered Tests: Medication Summary Discontinued Medications Generic Name Dose Route Start Last Admin Trade Name Freq PRN Reason Stop Dose Admin Hydrocodone Bitart/Acetaminophen 2 tab 04/01/23 00:29 04/01/23 00:42 Hydrocodone/Apap 5/325 1 Tab Tablet PO 04/01/23 00:30 2 tab SENT HOME W/ PATIENT ONE Administration Hydrocodone Bitart/Acetaminophen Confirm 04/01/23 00:37 Hydrocodone/Apap 5/325 1 Tab Tablet Administered 04/01/23 00:38 Dose 2 tab .ROUTE .STK-MED ONE Bacitracin Zinc 0.9 each 04/01/23 00:31 04/01/23 00:43 Bacitracin Packet 1 Each Pckt TP 04/01/23 00:32 0.9 each STAT ONE Administration Bacitracin Zinc Confirm 04/01/23 00:38 Bacitracin Packet 1 Each Pckt Administered 04/01/23 00:39 Dose 2 each .ROUTE .STK-MED ONE Ketorolac Tromethamine 30 mg 04/01/23 00:32 04/01/23 00:43 Ketorolac Tromethamine 30 Mg/Ml Inj IM 04/01/23 00:33 30 mg STAT ONE Administration Ketorolac Tromethamine Confirm 04/01/23 00:38 Ketorolac Tromethamine 30 Mg/Ml Inj Administered 04/01/23 00:39 Dose 30 mg .ROUTE .STK-MED ONE - Progress Progress: improved Progress Note: 04/01/23 01:01 22-year-old female presented with a superficial burn of her left hand. Patient received ketorolac 30 mg IM, patient reports feeling much better. Patient reports her pain is improved. Applied bacitracin on patient's wound. Discussed importance of following up with PCP as that blister that is growing on her hand from the burn may require some debridement. Send home patient with [place] 5 325 2 tabs. Patient verbalized understanding of above. Will see patient in: office Counseled pt/family regarding: need for follow-up - Departure Departure Disposition: Home Clinical Impression: Superficial burn of hand Condition: Stable Critical Care Time: No Referrals: BOB MALDONADO [Primary Care Provider] - Follow up/PCP as directed
[2023-04-01] MEDS ORDERED: NORCO 5/325 MG PO ONE (00:29)
[2023-04-01] MEDS ORDERED: BACIGUENT PACKET TP ONE (00:31)
[2023-04-01] MEDS ORDERED: TORAdol 30 mg Injection IM ONE (00:32)
[2023-04-01] MEDS ORDERED: NORCO 5/325 MG ONE (00:37)
[2023-04-01] MEDS ORDERED: TORAdol 30 mg Injection ONE (00:38)
[2023-04-01] MEDS ORDERED: BACIGUENT PACKET ONE (00:38)
[2023-04-01 01:25] VITALS: BP 108/64; PULSE 71; O2SAT 97
== END 2023-04-01 01:24 | disposition home or self-care (01) ==
LOC: ED 00:02
DX: T23.152A Burn of first degree of left palm, initial encounter (principal); X10.2XXA Contact with fats and cooking oils, initial encounter; Y93.G1 Activity, food preparation and clean up; Y92.000 Kitchen of unspecified non-institutional (private) residence as the place of occurrence of the external cause; Z28.310 Unvaccinated for COVID-19
CPT/HCPCS: 96372; 99283; J1885; A9270-GY

== ENCOUNTER 2023-12-22 23:25 | Emergency (ER) | payer OTHER ==
--- NOTE | 2023-12-22 23:30 | ERPHSYRPT ---
- History of Present Illness Time Seen by Provider: 12/22/23 23:30 Source: patient, family Exam Limitations: no limitations Physician History: pt seen for lac left third digit today. flex/ext prox and distal phalanges. nontender. lac distal volar segment. no FB with irrigation and probing. discussed risks/benefits suturing and tdap and the pt wishes to proceed. No other injuries or symptoms. Timing/Duration: today Severity: moderate Modifying Factors: Improves With: nothing Associated Symptoms: denies symptoms Allergies/Adverse Reactions: No Known Drug Allergies Allergy (Verified 12/23/23 00:31) Hx Tetanus, Diphtheria Vaccination/Date Given: Yes Hx Influenza Vaccination/Date Given: Yes Hx Pneumococcal Vaccination/Date Given: No Travel Risk - Vaccine Status Have you recieved a Covid-19 vaccination: No - Review of Systems Constitutional: No Symptoms, No Fever, No Chills Eyes: No Symptoms Ears, Nose, & Throat: No Symptoms Respiratory: No Symptoms, No Cough, No Dyspnea Cardiac: No Symptoms, No Chest Pain, No Edema, No Syncope Abdominal/Gastrointestinal: No Symptoms, No Abdominal Pain, No Nausea, No Vomiting, No Diarrhea Genitourinary Symptoms: No Symptoms, No Dysuria Musculoskeletal: No Symptoms, No Back Pain, No Neck Pain Skin: Other (laceration left third digit distal phal. ), No Rash Neurological: No Dizziness, No Focal Weakness, No Sensory Changes Psychological: No Symptoms Endocrine: No Symptoms Hematologic/Lymphatic: No Symptoms Immunological/Allergic: No Symptoms All Other Systems: Reviewed and Negative - Past Medical History Pertinent Past Medical History: Yes Neurological History: No Pertinent History ENT History: No Pertinent History Cardiac History: Angina Respiratory History: No Pertinent History Endocrine Medical History: No Pertinent History Musculoskeletal History: No Pertinent History GI Medical History: GERD, Gallbladder Disease, Hemorrhoids History: No Pertinent History Psycho-Social History: Depression Female Reproductive Disorders: Menstrual Problems Other Medical History: hiatal hernia and barretts esophagus. - Past Surgical History Past Surgical History: Yes Neuro Surgical History: No Pertinent History Cardiac: No Pertinent History Respiratory: No Pertinent History Gastrointestinal: No Pertinent History Genitourinary: No Pertinent History Musculoskeletal: Orthopedic Surgery Female Surgical History: No Pertinent History Other Surgical History: carpal and cubital tunnel bilat, wisdom teeth Significant Family History: no pertinent family hx - Social History Smoking Status: Never smoker How long have you smoked: 1 Exposure to second hand smoke: No Drug Use: none Patient Lives Alone: No - Nursing Vital Signs Nursing Vital Signs: Initial Vital Signs Temperature 98.2 F 12/23/23 00:31 Pulse Rate 85 12/23/23 00:31 Respiratory Rate 18 12/23/23 00:31 Blood Pressure 108/60 12/23/23 00:31 O2 Sat by Pulse Oximetry 99 12/23/23 00:31 Pain Scale Pain Intensity 7 - Physical Exam General Appearance: no apparent distress, alert Eye Exam: PERRL/EOMI, eyes nml inspection Ears, Nose, Throat Exam: normal ENT inspection, TMs normal, pharynx normal, moist mucous membranes Neck Exam: normal inspection, non-tender, supple, full range of motion Respiratory Exam: normal breath sounds, lungs clear, No respiratory distress Cardiovascular Exam: regular rate/rhythm, normal heart sounds, normal peripheral pulses Gastrointestinal/Abdomen Exam: soft, normal bowel sounds, No tenderness, No mass Pelvic Exam: deferred Rectal Exam: deferred Back Exam: normal inspection, normal range of motion, No CVA tenderness, No vertebral tenderness Extremity Exam: normal inspection, normal range of motion, pelvis stable Neurologic Exam: alert, oriented x 3, cooperative, normal mood/affect, nml cerebellar function, nml station & gait, sensation nml, No motor deficits Skin Exam: normal color, warm, dry, No rash Lymphatic Exam: No adenopathy SpO2 Interpretation: normal SpO2: 99 O2 Delivery: Room Air Procedures - Laceration/Wound Repair Left Finger Wound Location: Left, hand Wound Length (cm): 1 Wound's Depth, Shape: linear, into subcut Wound Explored: no foreign body noted Irrigated: Yes (30 cc NS) Hibiclens Prep: Yes Anesthesia: local, 1% Lidocaine Volume Anesthetic (ccs): 1 Wound Debrided: minimal Wound Repaired With: sutures Suture Size/Type: 4-0, ethilon Number of Sutures: 2 Layer Closure?: No Sterile Dressing Applied?: Yes Splint Applied?: No Sling Applied?: No - Course Nursing assessment & vital signs reviewed: Yes Ordered Tests: Active Orders 24 hr Category Date Time Status Sutures STAT Care 12/23/23 01:10 Active Medication Summary Discontinued Medications Generic Name Dose Route Start Last Admin Trade Name Freq PRN Reason Stop Dose Admin Diphtheria/Tetanus/Acell Pertussis 0.5 ml 12/23/23 01:10 12/23/23 01:29 Tdap --Diph,Pertuss(Acell),Tet Vac/Pf 0.5 Ml Vial IM 12/23/23 01:11 0.5 ml .ONCE ONE Administration Diphtheria/Tetanus/Acell Pertussis Confirm 12/23/23 01:28 Tdap --Diph,Pertuss(Acell),Tet Vac/Pf 0.5 Ml Vial Administered 12/23/23 01:29 Dose 0.5 ml IM .STK-MED ONE Lidocaine HCl Confirm 12/23/23 01:23 Lidocaine Hcl 1% 20 Ml Mdv 20 Ml Ml Administered 12/23/23 01:24 Dose 1 ml .ROUTE .STK-MED ONE - Progress Progress: improved, re-examined Progress Note: 12/23/23 01:57 discussed prescription mupiricin with pt risks/benefits and she wishes to proceed. Counseled pt/family regarding: diagnosis, need for follow-up Medical Desision Making - Discussion of managment Reviewed:: Need for additional workup Agreed on:: Treatment plan, need for follow-up - Diagnostic Testing Diagnostic test were ordered, analyzed, and reviewed by me: No - Risk of complications The pt has a mod risk of morbidity or mortality based on: Need for prescription drug management - Departure Departure Disposition: Home Clinical Impression: laceration left hand finger Condition: Good Critical Care Time: No Referrals: BOB MALDONADO [Primary Care Provider] - Follow up/PCP as directed Instructions: Surgical Wound (DC), Wound Care (DC), Laceration Repair With Stit ches (DC) Additional Instructions: followup with your dr. in 10 days to remove sutures. return meantime if redness, drainage, pain, or other concerns. change dressing daily and when soiled. apply antibiotic ointment bactroban daily as prescribed. Prescriptions: Mupirocin [Bactroban OINTMENT] 22 gm TP DAILY #1 cartridge
[2023-12-23 00:54] VITALS: TEMP 98.2
[2023-12-23] MEDS ORDERED: XYLOCAINE 1% HCL 20 ML MDV ONE (01:23)
[2023-12-23] MEDS ORDERED: Adacel Vial IM ONE (01:28)
[2023-12-23] MEDS: Adacel Vial IM ONE (01:29)
[2023-12-23 01:33] VITALS: O2SAT 99
[2023-12-23 02:05] VITALS: BP 88/50; PULSE 76; RESP 20
[2023-12-23] MEDS ORDERED: BACIGUENT PACKET ONE (02:31)
[2023-12-23] MEDS: BACIGUENT PACKET TP ONE (02:34)
== END 2023-12-23 02:56 | disposition home or self-care (01) ==
LOC: ED 23:25
DX: S61.213A Laceration without foreign body of left middle finger without damage to nail, initial encounter (principal); Z28.310 Unvaccinated for COVID-19; Z23 Encounter for immunization
CPT/HCPCS: 12001; 90471; 90715; 99283; A9270-GY

== ENCOUNTER 2024-11-10 07:32 | Day surgery (SDC) | payer OTHER ==
[2024-11-10] MEDS ORDERED: CEFAZOLIN 1 GM/100 ML NACL IVPB 1 GM/100 ML IVPB IV ONE (07:39)
[2024-11-10] MEDS ORDERED: CEFAZOLIN 2 GM/100 ML NaCl 2 GM/100 ML IVPB IV SCH (07:45)
[2024-11-10] MEDS: CEFAZOLIN 1 GM/100 ML NACL IVPB 1 GM/100 ML IVPB IV ONE (07:51)
[2024-11-10] MEDS: Lactated Ringers 1,000 ML IV SCH (07:51)
[2024-11-10] MEDS: celeBREX 100 MG PO ONE (07:52)
[2024-11-10] MEDS: NEURONTIN PO SCH (07:52)
[2024-11-10] MEDS: Decadron 4 MG PO ONE (07:52)
[2024-11-10] MEDS: TYLENOL EXTRA STRENGTH 500 MG PO ONE (07:53)
[2024-11-10 08:00] VITALS: O2SAT 100
[2024-11-10 08:19] LABS: HCG SERUM TEST NEGATIVE (NEGATIVE)
[2024-11-10] MEDS ORDERED: ROCURONIUM BROMIDE IV ONE (09:57)
[2024-11-10] MEDS ORDERED: Versed 2 MG/2 ML Injection ONE (09:57)
[2024-11-10] MEDS ORDERED: propofoL IV ONE (09:57)
[2024-11-10] MEDS ORDERED: SUBLIMAZE 100 MCG/2 ML ONE ×2 (09:57→11:28)
[2024-11-10] MEDS ORDERED: Sensorcaine 0.25% 10 ML ONE (10:04)
[2024-11-10] MEDS ORDERED: Sodium Chloride 0.9% 1000 ML 1,000 ML ONE (10:09)
[2024-11-10] MEDS ORDERED: Xylocaine-Mpf 2% 5 Ml Vial ONE (10:12)
[2024-11-10] MEDS ORDERED: Zofran 4 MG/2 ML VIAL ONE (11:09)
[2024-11-10] MEDS ORDERED: TORAdol 30 mg Injection ONE (11:23)
[2024-11-10] MEDS ORDERED: BRIDION 200MG/2ML IV ONE (11:28)
[2024-11-10 11:59] VITALS: RESP 16
[2024-11-10 12:25] VITALS: BP 113/75; PULSE 65; TEMP 98.1
[2024-11-10] MEDS: Compazine 10 MG/2 ML IV ONE (12:33)
[2024-11-10 14:27] LABS: Appearance Clear (Clear); Bilirubin Negative (Negative); Blood Trace (Negative); Glucose, Urine Negative (Negative); Ketones 15 (Negative); Leukocyte Esterase Negative (Negative); Nitrite Negative (Negative); Ph 6.5 (4.6-8.0); Protein,Urine Dip 30 (Negative); RBC 0-2 /HPF (0-5); Specific Gravity >=1.030 (1.005-1.030)
[2024-11-10 14:28] LABS: Bacteria Rare /HPF (None Seen); Epithelial Cells Rare /HPF (None Seen); Hyaline Casts None Seen /LPF (0-2); WBC NONE SEEN /HPF (0-5)
--- NOTE | 2024-11-12 09:49 | OP ---
SURGERY DATE/TIME: 11/10/2024 [id number] PREOPERATIVE DIAGNOSIS: Contraceptive care management. POSTOPERATIVE DIAGNOSIS: Contraceptive care management. PROCEDURE: Laparoscopic tubal sterilization via bilateral salpingectomy. SURGEON: Tomy Ferraro DO LEI MAKER: Olga Lidia Richardson ANESTHESIA: General. ESTIMATED BLOOD LOSS: Minimal. COMPLICATIONS: None. INDICATIONS: The risks, benefits, indications, and alternatives of the procedure were reviewed with the patient prior to the procedure. The patient understood the risks of infection, bleeding, bowel injury, bladder injury, ureteral injury, pelvic infection, thromboembolic disorder, possible future and ectopic that may be associated with this type of procedure for sterilization and understands the risk of the inability to get in the future where all other forms of control have been discussed with the patient. The patient also understood that her tubes would be removed and she would have the inability to get in the future. Again, all other forms of control were discussed with the patient prior to the procedure and desires to have this procedure as a form of permanent sterilization. DESCRIPTION OF PROCEDURE AND FINDINGS: From this point, the patient was taken to the operating room and given general sedation, placed in a supine position where she was given general anesthesia and she was prepped and draped in the usual sterile fashion. A 5 mm skin incision was made in the umbilical fold and a 5 mm trocar and sleeve were advanced under direct visualization where pneumoperitoneum was placed with 4 L of CO2 gas. An additional incision was made 2 cm above the symphysis pubis where an 8 mm incision was made and 8 mm trocar and sleeve were advanced under direct visualization and an additional incision was made left middle quadrant region where a 5 mm incision was made and a 5 mm trocar and sleeve were advanced under direct visualization. A survey of the patient's pelvis and abdomen revealed her to have normal anatomy with no gross abnormalities that were noted. From this point, the right adnexa was elevated with the grasper by the corporate legal assistant and the LigaSure was used and placed over the right mesosalpinx and taken down through the entire length of the tube where it was excised and clamped, coagulated, and cut and hemostasis was obtained and removed from the 8 mm site. The same procedure was performed on the left side where the left fallopian tube was identified and the LigaSure was placed over the mesosalpinx under the left fallopian tube where it was clamped, coagulated, and cut and taken down towards the cornual region of the uterus and it was excised in a similar fashion and hemostasis was obtained. The fallopian tube was removed from the 8 mm incisional site. From this point, again surveyed the patient's pelvis. It appeared to be within normal limits and no gross abnormalities were noted and there was no bleeding that was noted in the pelvic region. From this point, all instruments were removed from the patient's abdominal region and the incisions were closed with 4-0 Monocryl suture. Patient was then taken out of anesthesia and was then taken to the recovery room in stable condition. All instruments and laps were accounted for x2.
== END 2024-11-10 13:05 | disposition home or self-care (01) ==
LOC: SDC 07:32
PROVIDERS: ATTEND Obstetrics & Gynecology
DX: Z30.2 Encounter for sterilization (principal)
CPT/HCPCS: 36415; 58670; 81001; 84703; 87086; 96374; J0690; J1885; J2250; J2405; J2704; J3010; A9270-GY